=== PATIENT | female | born 1975 | race American Indian/Alaskan Native ===

== ENCOUNTER 2017-10-07 10:50 | Outpatient (CLI) | payer BC ==
--- NOTE | 2017-10-07 14:10 | Mammography Report ---
BILATERAL MAMMOGRAM: FINDINGS: Baseline mammogram. The breast tissue is extremely dense (>75% glandular). This may lower the sensitivity of mammography. No mass, distortion, suspicious calcification, or skin change is seen. CAD was utilized. IMPRESSION: Negative mammogram. There is no mammographic evidence of malignancy. RECOMMENDATION: Follow-up per ACS guidelines. BI-RADS CATEGORY: 1 = Negative ACR BI-RADS MAMMOGRAPHIC CODES: 0 = Needs additional imaging evaluation; 1 = Negative; 2 = Benign; 3 = Probably benign; 4 = Suspicious; 5 = Malignant; 6 = Known biopsy-proven malignancy COMMENT: 1. Dense breast tissue, i.e., adenosis, fibrocystic changes, etc., may obscure an underlying neoplasm. 2. Approximately 10% of cancers are not detected with mammography. 3. A negative mammography report should not delay biopsy if a clinically suspicious mass is present. COMMENT: Patient follow-up letters are generated in [employer].
--- NOTE | 2017-10-07 14:56 | Ultrasound Report ---
Pelvic ultrasound: Fibroids. Transabdominal and endovaginal imaging demonstrates an anteverted uterus measuring 8.1 x 9.9 x 13.4 cm. The uterus is diffusely inhomogeneous with multiple areas of circumscribed hypodensities. There are proximally for identified ranging in size from 3.1-6.5 cm. The largest is exophytic located in the high fundus. Another is in the lower uterine segment measuring 3.9 centimeters. The endometrium measures 18.2 mm. It is not optimally visualized. The ovaries are not identified by either approach. No free fluid noted. Impressions: 1. Enlarged uterus with multiple fibroids. 2. Poorly visualized thickened endometrium. 3. Nonvisualized ovaries.
== END 2017-10-07 10:51 | disposition home or self-care (01) ==
LOC: MAMMO 10:50 → US 10:50 → MAMMO 10:51
PROVIDERS: ATTEND Obstetrics & Gynecology
DX: Z12.31 Encounter for screening mammogram for malignant neoplasm of breast (principal); D25.9 Leiomyoma of uterus, unspecified
CPT/HCPCS: 76830; 76856; 77067

== ENCOUNTER 2017-12-20 11:34 | Outpatient (CLI) | payer BC ==
--- NOTE | 2017-12-20 14:22 | XRay Report ---
ROUTINE CHEST, TWO VIEWS: HISTORY: Shortness of breath. The trachea, heart, mediastinal contour, lung rivas and bony thorax are unremarkable. IMPRESSION: Unremarkable chest x-ray.
[2017-12-20] MEDS ORDERED: PROVENTIL IH ONE (14:23)
== END 2017-12-20 11:35 | disposition home or self-care (01) ==
LOC: ECHO 11:34
PROVIDERS: ATTEND Internal Medicine
DX: J45.901 Unspecified asthma with (acute) exacerbation (principal); I27.20 Pulmonary hypertension, unspecified
CPT/HCPCS: 71046; 93306; 94060; 94640; 94726; 94727; 94729

== ENCOUNTER 2019-03-23 09:46 | Outpatient (CLI) | payer BC ==
--- NOTE | 2019-03-23 15:04 | Ultrasound Report ---
Pelvic ultrasound INDICATION: History of uterine leiomyoma Transabdominal and endovaginal studies were performed. Uterus measures 14.3 x 8.8 x 10.7 cm. Multiple uterine leiomyomata are seen throughout the uterine fu ndus and body. The largest protrudes from the fundal area measuring 8.2 cm in maximal diameter. Endom etrial stripe is difficult to see well due to deformity from the leiomyomata though was measured by t technologist at 10 mm. Right ovary not be visualized. Left ovary measures 3.9 cm in length by my measurement and shows no ab normalities. No adnexal masses are seen. Only a trace of free fluid is seen. IMPRESSION: Multiple uterine leiomyomata Signer Name: South Ray MD Signed: 03/23/2019 3:00 PM Workstation Name: [id number]
--- NOTE | 2019-03-23 15:32 | Ultrasound Report ---
See separate pelvic ultrasound report Signer Name: South Ray MD Signed: 03/23/2019 3:27 PM Workstation Name: [id number]
== END 2019-03-23 09:47 | disposition home or self-care (01) ==
LOC: US 09:46
PROVIDERS: ATTEND Orthopaedic Surgery
DX: D25.9 Leiomyoma of uterus, unspecified (principal)
CPT/HCPCS: 76830; 76856

== ENCOUNTER 2019-05-15 10:46 | Outpatient (CLI) | payer BC ==
--- NOTE | 2019-05-15 14:26 | Magnetic Resonance Report ---
MRI PELVIS WITH AND WITHOUT CONTRAST HISTORY: D25.2) Subserosal leiomyoma of uterus. TECHNIQUE: Multisequence, multiplanar MRI and after IV contrast. 15 mL of MultiHance was given intrav enously. COMPARISON: Ultrasound pelvis dated 03/23/2019 FINDINGS: The uterus is markedly enlarged and lobular. Numerous submucosal, intramural, subserosal a nd exophytic fibroids are identified. Fibroids measure between 1 cm and 8 cm. The largest fibroid is an exophytic fibroid from the posterior wall measuring 8.2 cm in greatest dimension. There is no obvi ous calcification or cavitation of the fibroids. All fibroids enhance following the administration of IV contrast. The adnexa are unremarkable. Visualized bowel loops in the pelvis are within normal limits. The vascular structures are patent. Th e bony structures are unremarkable. No pelvic adenopathy. There is trace pelvic ascites. IMPRESSION: Severe uterine fibroid disease as described. Signer Name: Jonathan Bethea Jr, MD Signed: 05/15/2019 2:22 PM Workstation Name: [id number]
== END 2019-05-15 10:47 | disposition home or self-care (01) ==
LOC: MRI 10:46
PROVIDERS: ATTEND Radiology Diagnostic Radiology
DX: D25.1 Intramural leiomyoma of uterus (principal)
CPT/HCPCS: 72197; A9577

== ENCOUNTER 2019-07-04 22:57 | Inpatient (IN) | payer BC ==
[2019-07-04] MEDS ORDERED: KETOROLAC 30 MG/1 ML INJ IV ONE (23:15)
[2019-07-04] MEDS ORDERED: ONDANSETRON 4 MG/2 ML INJ IV ONE (23:15)
[2019-07-04] MEDS ORDERED: FAMOTIDINE 20 MG/2 ML INJ IV ONE (23:15)
[2019-07-04] MEDS ORDERED: SODIUM CHLORIDE 0.9% 1000 ML 1,000 ML IV ONE (23:15)
[2019-07-04] MEDS ORDERED: MORPHINE 4 MG/1 ML INJ IV ONE (23:15)
[2019-07-04 23:41] LABS: Basophils % (Auto) 0.3 % (0.0-1.8); Eosinophils # (Auto) 0.2 K/mm3 (0.0-0.4); Hematocrit 41.8 % (30.3-42.9); Hemoglobin 13.7 gm/dl (10.1-14.3); Lymphocytes # (Auto) 1.7 K/mm3 (1.2-5.4); Lymphocytes % (Auto) 14.3 % (13.4-35.0); Mean Corpuscular HGB Conc 33 % (30-34); Mean Corpuscular Volume 92 fl (79-97); Monocytes # (Auto) 0.6 K/mm3 (0.0-0.8); Platelet Count 286 K/mm3 (140-440); Red Blood Count 4.53 M/mm3 (3.65-5.03); Red Cell Distribution Width 15.4 % (13.2-15.2)
[2019-07-04 23:51] LABS: INR 1.03 (0.87-1.13)
[2019-07-04 23:52] LABS: Partial Thromboplastin Time 25.1 Sec. (24.2-36.6)
[2019-07-04 23:59] LABS: Alanine Aminotransferase 10 units/L (7-56); Albumin 4.1 g/dL (3.9-5); BUN/Creatinine Ratio 11; Blood Urea Nitrogen 8 mg/dL (7-17); Calcium 9.4 mg/dL (8.4-10.2); Hemolysis Index 11
[2019-07-05] MEDS ORDERED: SODIUM CHLORIDE 0.9% 1000 ML 1,000 ML IV ONE (00:34)
[2019-07-05 00:57] LABS: Bacteria,Urine 1+ /HPF (Negative); Bilirubin,Urine NEG (Negative); Blood,Urine NEG (Negative); Color,Urine Amber (Yellow); Mucus,Urine 1+ /HPF; Urobilinogen,Urine < 2.0 mg/dL (<2.0)
--- NOTE | 2019-07-05 01:31 | Cat Scan Report ---
CT ABDOMEN AND PELVIS WITH CONTRAST INDICATION / CLINICAL INFORMATION: abd distension with pain. TECHNIQUE: Axial CT images were obtained through the abdomen and pelvis after 100 mL Omnipaque [address] scans at this location are performed using CT dose reduction for ALARA by means of automated exposure control. COMPARISON: MRI pelvis dated 05/15/19 FINDINGS: LOWER CHEST: No significant abnormality. LIVER: No significant abnormality. GALLBLADDER: No significant abnormality. BILE DUCTS: No significant abnormality. PANCREAS: No significant abnormality. SPLEEN: No significant abnormality. ADRENALS: No significant abnormality. RIGHT KIDNEY and URETER: No significant abnormality. LEFT KIDNEY and URETER: No significant abnormality. STOMACH and SMALL BOWEL: Stomach is mildly dilated and fluid-filled. Small bowel is diffusely and mod erately dilated with numerous air-fluid levels. There is some feculent material in the distal small b owel. There is gradual transition from dilated to nondilated in the distal small bowel. No discrete t ransition point is noted. COLON: Normal amount of gas and fecal material throughout the colon. APPENDIX: No significant abnormality. PERITONEUM: No free fluid. No free air. No fluid collection. LYMPH NODES: No significant adenopathy. AORTA and ARTERIES: No significant abnormality. IVC and VEINS: No significant abnormality. URINARY BLADDER: No significant abnormality. REPRODUCTIVE ORGANS: As seen on recent MRI, the bladder is markedly enlarged containing numerous fibr oids. There is increased density and gas within several of these large fibroids which could represent degeneration versus necrosis. ADDITIONAL FINDINGS: None. SKELETAL SYSTEM: No significant abnormality. IMPRESSION: 1. Moderately dilated, fluid-filled small bowel with gradual transition in the distal small bowel. Fi ndings could represent ileus versus low-grade obstruction. 2. Enlarged uterus containing multiple fibroids with degeneration versus necrosis. Signer Name: Boubacar Jamil MD Signed: 07/05/2019 1:26 AM Workstation Name: [email or web address]
--- NOTE | 2019-07-05 01:56 | Emergency Department Report ---
ED Abdominal Pain HPI - General Chief Complaint: Abdominal Pain Stated Complaint: EMESIS/ABD PAIN Time Seen by Provider: 07/04/19 23:15 Source: patient Mode of arrival: Ambulatory Limitations: No Limitations - History of Present Illness Initial Comments: Patient is a 43-year-old female with past history of fibroids who had uterine artery embolization done approximately 5 days ago was complaining of diffuse abdominal pain. Patient states for the past 3 days she has had nausea and vomiting. Patient has not had a bowel movement since the procedure. Patient's been taking Percocet for pain but the pain is worsened over the last day. Patient states the pain is 10 out of 10 in severity. Patient has not had a bowel movement in approximately 5 days. Patient is pain in the abdomen is a 10 out of 10 in severity is diffuse. Patient denies urinary frequency or dysuria. Patient had to be straight cathed by her the day after the surgery but has had no apparent problems passing urine since Severity scale (0 -10): 0 - Related Data Allergies Allergy/AdvReac Type Severity Reaction Status Date / Time No Known Allergies Allergy Unverified 10/07/17 11:09 ED Review of Systems ROS: Stated complaint: EMESIS/ABD PAIN Other details as noted in HPI Comment: All other systems reviewed and negative ED Past Medical Hx - Past Medical History Previous Medical History?: No - Surgical History Past Surgical History?: No - Social History Smoking Status: Never Smoker Substance Use Type: Alcohol ED Physical Exam - General Limitations: No Limitations General appearance: alert, in distress - Head Head exam: Present: atraumatic, normocephalic - Eye Eye exam: Present: normal appearance, PERRL, EOMI - ENT ENT exam: Present: mucous membranes dry - Neck Neck exam: Present: normal inspection - Respiratory Respiratory exam: Present: normal lung sounds bilaterally. Absent: respiratory distress, wheezes, rales, rhonchi - Cardiovascular Cardiovascular Exam: Present: regular rate, normal rhythm, normal heart sounds. Absent: systolic murmur, diastolic murmur, rubs, gallop - GI/Abdominal GI/Abdominal exam: Present: soft, distended, tenderness (diffuse), normal bowel sounds, hyperactive bowel sounds. Absent: guarding, rebound - Extremities Exam Extremities exam: Present: normal inspection - Back Exam Back exam: Present: normal inspection - Neurological Exam Neurological exam: Present: alert, oriented X3 - Psychiatric Psychiatric exam: Present: normal affect, normal mood - Skin Skin exam: Present: warm, dry, intact, normal color. Absent: rash ED Course Vital Signs 07/04/19 07/04/19 07/04/19 23:16 23:36 23:38 Temperature 97.8 F 97.8 F Pulse Rate 78 Respiratory 18 18 Rate Blood Pressure 131/89 [Right] O2 Sat by Pulse 98 98 Oximetry ED Medical Decision Making - Lab Data Result diagrams: 07/04/19 23:29 07/04/19 23:29 Lab Results 07/04/19 07/04/19 07/04/19 Range/Units 23:29 23:29 23:29 WBC 11.8 H (4.5-11.0) K/mm3 RBC 4.53 (3.65-5.03) M/mm3 Hgb 13.7 (10.1-14.3) gm/dl Hct 41.8 (30.3-42.9) % MCV 92 (79-97) fl MCH 30 (28-32) pg MCHC 33 (30-34) % RDW 15.4 H (13.2-15.2) % Plt Count 286 (140-440) K/mm3 Lymph % (Auto) 14.3 (13.4-35.0) % [place] % (Auto) 5.0 (0.0-7.3) % Eos % (Auto) 2.0 (0.0-4.3) % Baso % (Auto) 0.3 (0.0-1.8) % Lymph # 1.7 (1.2-5.4) K/mm3 [place] # 0.6 (0.0-0.8) K/mm3 Eos # 0.2 (0.0-0.4) K/mm3 Baso # 0.0 (0.0-0.1) K/mm3 Seg Neutrophils % 78.4 H (40.0-70.0) % Seg Neutrophils # 9.3 H (1.8-7.7) K/mm3 PT 13.4 (12.2-14.9) Sec. INR 1.03 (0.87-1.13) APTT 25.1 (24.2-36.6) Sec. Sodium 139 (137-145) mmol/L Potassium 3.9 (3.6-5.0) mmol/L Chloride 98.3 (98-107) mmol/L Carbon Dioxide 25 (22-30) mmol/L Anion Gap 20 mmol/L BUN 8 (7-17) mg/dL Creatinine 0.7 (0.7-1.2) mg/dL Estimated GFR > 60 ml/min BUN/Creatinine Ratio 11 % Glucose 120 H (65-100) mg/dL Calcium 9.4 (8.4-10.2) mg/dL Total Bilirubin 0.40 (0.1-1.2) mg/dL AST 18 (5-40) units/L ALT 10 (7-56) units/L Alkaline Phosphatase 76 (35-129) units/L Total Protein 8.9 H (6.3-8.2) g/dL Albumin 4.1 (3.9-5) g/dL Albumin/Globulin Ratio 0.9 % Lipase 33 (13-60) units/L HCG, Qual (Negative) Urine Color (Yellow) Urine Turbidity (Clear) Urine pH (5.0-7.0) Ur Specific [place] (1.003-1.030) Urine Protein (Negative) mg/dL Urine Glucose (UA) (Negative) mg/dL Urine Ketones (Negative) mg/dL Urine Blood (Negative) Urine Nitrite (Negative) Urine Bilirubin (Negative) Urine Urobilinogen (<2.0) mg/dL Ur Leukocyte Esterase (Negative) Urine WBC (Auto) (0.0-6.0) /HPF Urine RBC (Auto) (0.0-6.0) /HPF Urine Bacteria (Auto) (Negative) /HPF Urine Mucus /HPF 07/04/19 07/05/19 Range/Units 23:29 00:36 WBC (4.5-11.0) K/mm3 RBC (3.65-5.03) M/mm3 Hgb (10.1-14.3) gm/dl Hct (30.3-42.9) % MCV (79-97) fl MCH (28-32) pg MCHC (30-34) % RDW (13.2-15.2) % Plt Count (140-440) K/mm3 Lymph % (Auto) (13.4-35.0) % [place] % (Auto) (0.0-7.3) % Eos % (Auto) (0.0-4.3) % Baso % (Auto) (0.0-1.8) % Lymph # (1.2-5.4) K/mm3 [place] # (0.0-0.8) K/mm3 Eos # (0.0-0.4) K/mm3 Baso # (0.0-0.1) K/mm3 Seg Neutrophils % (40.0-70.0) % Seg Neutrophils # (1.8-7.7) K/mm3 PT (12.2-14.9) Sec. INR (0.87-1.13) APTT (24.2-36.6) Sec. Sodium (137-145) mmol/L Potassium (3.6-5.0) mmol/L Chloride (98-107) mmol/L Carbon Dioxide (22-30) mmol/L Anion Gap mmol/L BUN (7-17) mg/dL Creatinine (0.7-1.2) mg/dL Estimated GFR ml/min BUN/Creatinine Ratio % Glucose (65-100) mg/dL Calcium (8.4-10.2) mg/dL Total Bilirubin (0.1-1.2) mg/dL AST (5-40) units/L ALT (7-56) units/L Alkaline Phosphatase (35-129) units/L Total Protein (6.3-8.2) g/dL Albumin (3.9-5) g/dL Albumin/Globulin Ratio % Lipase (13-60) units/L HCG, Qual Negative (Negative) Urine Color [place] (Yellow) Urine Turbidity Clear (Clear) Urine pH 5.0 (5.0-7.0) Ur Specific [place] 1.034 H (1.003-1.030) Urine Protein 30 mg/dl (Negative) mg/dL Urine Glucose (UA) Neg (Negative) mg/dL Urine Ketones 20 (Negative) mg/dL Urine Blood Neg (Negative) Urine Nitrite Neg (Negative) Urine Bilirubin Neg (Negative) Urine Urobilinogen < 2.0 (<2.0) mg/dL Ur Leukocyte Esterase Neg (Negative) Urine WBC (Auto) 3.0 (0.0-6.0) /HPF Urine RBC (Auto) 21.0 (0.0-6.0) /HPF Urine Bacteria (Auto) 1+ (Negative) /HPF Urine Mucus 1+ /HPF - Radiology Data CT ABDOMEN AND PELVIS WITH CONTRAST INDICATION / CLINICAL INFORMATION: abd distension with pain. TECHNIQUE: Axial CT images were obtained through the abdomen and pelvis after 100 mL Omnipaque [address] scans at this location are performed using CT dose reduction for ALARA by means of automated exposure control. COMPARISON: MRI pelvis dated 05/15/19 FINDINGS: LOWER CHEST: No significant abnormality. LIVER: No significant abnormality. GALLBLADDER: No significant abnormality. BILE DUCTS: No significant abnormality. PANCREAS: No significant abnormality. SPLEEN: No significant abnormality. ADRENALS: No significant abnormality. RIGHT KIDNEY and URETER: No significant abnormality. LEFT KIDNEY and URETER: No significant abnormality. STOMACH and SMALL BOWEL: Stomach is mildly dilated and fluid-filled. Small bowel is diffusely and moderately dilated with numerous air-fluid levels. There is some feculent material in the distal small bowel. There is gradual transition from dilated to nondilated in the distal small bowel. No discrete transition point is noted. COLON: Normal amount of gas and fecal material throughout the colon. APPENDIX: No significant abnormality. PERITONEUM: No free fluid. No free air. No fluid collection. LYMPH NODES: No significant adenopathy. AORTA and ARTERIES: No significant abnormality. IVC and VEINS: No significant abnormality. URINARY BLADDER: No significant abnormality. REPRODUCTIVE ORGANS: As seen on recent MRI, the bladder is markedly enlarged containing numerous fibroids. There is increased density and gas within several of these large fibroids which could represent degeneration versus necrosis. ADDITIONAL FINDINGS: None. SKELETAL SYSTEM: No significant abnormality. IMPRESSION: 1. Moderately dilated, fluid-fi lled small bowel with gradual transition in the distal small bowel. Findings could represent ileus versus low-grade obstruction. 2. Enlarged uterus containing multiple fibroids with degeneration versus necrosis. Signer Name: Boubacar Jamil MD Signed: 07/05/2019 1:26 AM Workstation Name: [id number] Transcribed By: DT Dictated By: Kyle Jamil MD Electronically Authenticated By: Kyle Jamil MD Signed Date/Time: 07/05/19 0126 - Medical Decision Making Patient is a 43-year-old female who is 5 days status post uterine artery embolization. Vascular surgeon told patient and her that she would be a some pain however the pain is worsened from with the patient was expecting she's been brought to the emergency department. Patient also has a distended abdomen nausea vomiting for the past [address] shows that the patient has diffuse dilation of the small bowel which does taper off close to the colon. This suggestive of ileus versus low-grade obstruction. NG tube will be placed. Patient was hydrated. Patient be admitted to the hospital Critical care attestation.: If time is entered above; I have spent that time in minutes in the direct care of this critically ill patient, excluding procedure time. ED Disposition Clinical Impression: Small bowel obstruction Disposition: -09 OP ADMIT IP TO THIS HOSP Is pt being admited?: Yes Does the pt Need Aspirin: No Condition: Stable Referrals: FREDERICK STEPHENS MD [Primary Care Provider] - 3-5 Days Time of Disposition: 02:06
[2019-07-05] MEDS ORDERED: LIDOCAINE VISCOUS 2% 15 ML ORAL LIQD PO ONE (02:25)
[2019-07-05] MEDS ORDERED: ACETAMINOPHEN 325 MG TAB PO PRN (02:57)
[2019-07-05] MEDS ORDERED: ONDANSETRON 4 MG/2 ML INJ IV PRN (02:57)
[2019-07-05] MEDS ORDERED: METOCLOPRAMIDE 10 MG/2 ML INJ IV PRN (02:57)
--- NOTE | 2019-07-05 03:07 | History and Physical Report ---
<HEATHER QUEVEDO - Last Filed: 07/05/19 03:20> History of Present Illness Date of examination: 07/05/19 Date of admission: 07/05/2019 Chief complaint: n/v, and abdominal pain History of present illness: 43-year-old -Finnish female with history of uterine fibroid disease who presents to [facility] ED with complaints of nausea, emesis and abdominal pain for the past 5 days. Patient states that she underwent uterine artery embolization on 06/29/19. She has been experiencing severe emesis, abdominal pain and worsening distention for the past 5 days. She was advised that post procedurally, she may experience mild abdominal pain/discomfort for day or two. However, her pain has not resolved and has progressively worsened. She describes her pain as sharp, and constant. Post procedure day 1 patient experienced urinary retention for 1 day which required a catheterization performed by her . She's now able to void independently. Additionally pt c/o of constipation for the past 5 days. Past History Past Medical History: other (uterine fibroids disease,) Past Surgical History: Other (status post uterine artery embolization (06/29)) Social history: Family history: no significant family history Medications and Allergies Allergies Allergy/AdvReac Type Severity Reaction Status Date / Time No Known Allergies Allergy Unverified 10/07/17 11:09 Review of Systems All systems: negative Gastrointestinal: abdominal pain, nausea, vomiting, constipation, other (abdominal distention) Exam - Physical Exam Narrative exam: General appearance: Present: No acute distress, alert and oriented 3, pleasant, well, adult female - EENT Eyes: Present: PERRL, EOM intact ENT: hearing intact, normal dentition - Neck Neck: Present: supple, normal ROM - Respiratory Respiratory effort: Non-labored Respiratory: bilateral: CTA - Cardiovascular Heart rate:78 (bpm) Rhythm:SR Heart Sounds: Present: S1, S2. - Extremities Extremities: no ischemia, pulses intact - Peripheral Assessment Peripheral Pulses: within normal limits - Abdominal General gastrointestinal: Distended, diffuse tenderness, hyperactive bowel sounds, - Integumentary Integumentary: Present: warm, dry - Musculoskeletal Musculoskeletal: generalized weakness, able to move all extremities -Neurological Neurological: CN II-XII grossly intact - Psychiatric Psychiatric: Pleasant, cooperative - Constitutional Vitals: Temp Pulse Resp BP Pulse Ox 97.8 F 78 18 131/89 98 07/04/19 23:38 07/04/19 23:38 07/04/19 23:38 07/04/19 23:38 07/04/19 23:38 Results - Labs CBC & Chem 7: 07/04/19 23:29 07/04/19 23:29 Labs: Laboratory Last Values WBC 11.8 K/mm3 (4.5-11.0) H 07/04/19 23: RBC 4.53 M/mm3 (3.65-5.03) 07/04/19 23: Hgb 13.7 gm/dl (10.1-14.3) 07/04/19: Hct 41.8 % (30.3-42.9) 07/04/19: MCV 92 fl (79-97) 07/04/19 23: MCH 30 pg (28-32) 07/04/19: MCHC 33 % (30-34) 07/04/19: RDW 15.4 % (13.2-15.2) H 07/04/19 23: Plt Count 286 K/mm3 (140-440) 07/04/19 23:29 Lymph % (Auto) 14.3 % (13.4-35.0) 07/04/19: Gilchrist % (Auto) 5.0 % (0.0-7.3) 07/04/19: Eos % (Auto) 2.0 % (0.0-4.3) 07/04/19: Baso % (Auto) 0.3 % (0.0-1.8) 07/04/19 23: Lymph # 1.7 K/mm3 (1.2-5.4) 07/04/19: Gilchrist # 0.6 K/mm3 (0.0-0.8) 07/04/19: Eos # 0.2 K/mm3 (0.0-0.4) 07/04/19 23: Baso # 0.0 K/mm3 (0.0-0.1) 07/04/19 23: Seg Neutrophils % 78.4 % (40.0-70.0) H 07/04/19:29 Seg Neutrophils # 9.3 K/mm3 (1.8-7.7) H 07/04/19 23:29 PT 13.4 Sec. (12.2-14.9) 07/04/19 23:29 INR 1.03 (0.87-1.13) 07/04/19 23:29 APTT 25.1 Sec. (24.2-36.6) 07/04/19 23:29 Sodium 139 mmol/L (137-145) 07/04/19 23:29 Potassium 3.9 mmol/L (3.6-5.0) 07/04/19 23: Chloride 98.3 mmol/L (98-107) 07/04/19 23:29 Carbon Dioxide 25 mmol/L (22-30) 07/04/19 23:29 Anion Gap 20 mmol/L 07/04/19 23:29 BUN 8 mg/dL (7-17) 07/04/19 23: Creatinine 0.7 mg/dL (0.7-1.2) 07/04/19 23:29 Estimated GFR > 60 ml/min 07/04/19 23:29 BUN/Creatinine Ratio 11 % 07/04/19 23: Glucose 120 mg/dL (65-100) H 07/04/19 23: Calcium 9.4 mg/dL (8.4-10.2) 07/04/19 23:29 Total Bilirubin 0.40 mg/dL (0.1-1.2) 07/04/19 23:29 AST 18 units/L (5-40) 07/04/19: ALT 10 units/L (7-56) 07/04/19 23: Alkaline Phosphatase 76 units/L (35-129) 07/04/19 23:29 Total Protein 8.9 g/dL (6.3-8.2) H 07/04/19 23:29 Albumin 4.1 g/dL (3.9-5) 07/04/19 23: Albumin/Globulin Ratio 0.9 % 07/04/19 23:29 Lipase 33 units/L (13-60) 07/04/19 23:29 HCG, Qual Negative (Negative) 07/04/19 23:29 Urine Color Alesha (Yellow) 07/05/19 00:36 Urine Turbidity Clear (Clear) 07/05/19 00:36 Urine pH 5.0 (5.0-7.0) 07/05/19 00:36 Ur Specific [place] 1.034 (1.003-1.030) H 07/05/19 00:36 Urine Protein 30 mg/dl mg/dL (Negative) 07/05/19 00:36 Urine Glucose (UA) Neg mg/dL (Negative) 07/05/19 00:36 Urine Ketones 20 mg/dL (Negative) 07/05/19 00:36 Urine Blood Neg (Negative) 07/05/19 00:36 Urine Nitrite Neg (Negative) 07/05/19 00:36 Urine Bilirubin Neg (Negative) 07/05/19 00:36 Urine Urobilinogen < 2.0 mg/dL (<2.0) 07/05/19 00:36 Ur Leukocyte Esterase Neg (Negative) 07/05/19 00:36 Urine WBC (Auto) 3.0 /HPF (0.0-6.0) 07/05/19 00:36 Urine RBC (Auto) 21.0 /HPF (0.0-6.0) 07/05/19 00:36 Urine Bacteria (Auto) 1+ /HPF (Negative) 07/05/19 00:36 Urine Mucus 1+ /HPF 07/05/19 00:36 - Imaging and Cardiology Imaging and Cardiology: CT abdomen and pelvis: FINDINGS: LOWER CHEST: No significant abnormality. LIVER: No significant abnormality. GALLBLADDER: No significant abnormality. BILE DUCTS: No significant abnormality. PANCREAS: No significant abnormality. SPLEEN: No significant abnormality. ADRENALS: No significant abnormality. RIGHT KIDNEY and URETER: No significant abnormality. LEFT KIDNEY and URETER: No significant abnormality. STOMACH and SMALL BOWEL: Stomach is mildly dilated and fluid-filled. Small bowel is diffusely and moderately dilated with numerous air-fluid levels. There is some feculent material in the distal small bowel. There is gradual transition from dilated to nondilated in the distal small bowel. No discrete transition point is noted. COLON: Normal amount of gas and fecal material throughout the colon. APPENDIX: No significant abnormality. PERITONEUM: No free fluid. No free air. No fluid collection. LYMPH NODES: No significant adenopathy. AORTA and ARTERIES: No significant abnormality. IVC and VEINS: No significant abnormality. URINARY BLADDER: No significant abnormality. REPRODUCTIVE ORGANS: As seen on recent MRI, the bladder is markedly enlarged containing numerous fibroids. There is increased density and gas within several of these large fibroids which could represent degeneration versus necrosis. ADDITIONAL FINDINGS: None. SKELETAL SYSTEM: No significant abnormality. IMPRESSION: 1. Moderately dilated, fluid-filled small bowel with gradual transition in the distal small bowel. Findings could represent ileus versus low-grade obstruction. 2. Enlarged uterus containing multiple fibroids with degeneration versus necrosis. Assessment and Plan Assessment and plan: 43-year-old -Finnish female with history of uterine fibroid disease who presents to [facility] ED with complaints of nausea, emesis and abdominal pain for the past 5 days. Ileus versus Low-grade Small Bowel Obstruction -Seen on today's CT Abd/pelvis -NGT to LIS -NPO -IVF -Continue support care -Dr. 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 DVT PPX -On Lovenox Advance Directives: No VTE prophylaxis?: Chemical Plan of care discussed with patient/family: Yes <VIKRAM RUIZ - Last Filed: 07/05/19 05:38> History of Present Illness Date of admission: 07/05/19 02:57 Medications and Allergies Active Meds: Active Medications Enoxaparin Sodium (Enoxaparin) 40 mg SUB-Q QDAY [facility] Sodium Chloride (Nacl 0.45% 1000 Ml) 1,000 mls @ 100 mls/hr IV DIRECT [facility] Last Admin: 07/05/19 03:50 Dose: 100 mls/hr Documented by: Metoclopramide HCl (Reglan) 10 mg IV Q6H PRN PRN Reason: Nausea And Vomiting Morphine Sulfate (Morphine) 2 mg IV Q4H PRN PRN Reason: Pain, Moderate (4-6) Ondansetron HCl (Zofran) 4 mg IV Q6H PRN PRN Reason: Nausea And Vomiting Sodium Chloride (Sodium Chloride Flush Syringe 10 Ml) 10 ml IV BID GABI Sodium Chloride (Sodium Chloride Flush Syringe 10 Ml) 10 ml IV PRN PRN PRN Reason: LINE FLUSH Exam - Constitutional Vitals: Temp Pulse Resp BP Pulse Ox 98.0 F 88 18 131/85 100 07/05/19 05:21 07/05/19 05:21 07/05/19 05:21 07/05/19 05:21 07/05/19 05:21 Results - Labs CBC & Chem 7: 07/04/19 23:29 07/04/19 23:29 Labs: Laboratory Last Values WBC 11.8 K/mm3 (4.5-11.0) H 07/04/19 23:29 RBC 4.53 M/mm3 (3.65-5.03) 07/04/19 23:29 Hgb 13.7 gm/dl (10.1-14.3) 07/04/19 23: Hct 41.8 % (30.3-42.9) 07/04/19 23: MCV 92 fl (79-97) 07/04/19 23: MCH 30 pg (28-32) 07/04/19 23: MCHC 33 % (30-34) 07/04/19 23: RDW 15.4 % (13.2-15.2) H 07/04/19 23:29 Plt Count 286 K/mm3 (140-440) 07/04/19 23:29 Lymph % (Auto) 14.3 % (13.4-35.0) 07/04/19 23: Gilchrist % (Auto) 5.0 % (0.0-7.3) 07/04/19 23: Eos % (Auto) 2.0 % (0.0-4.3) 07/04/19 23: Baso % (Auto) 0.3 % (0.0-1.8) 07/04/19 23: Lymph # 1.7 K/mm3 (1.2-5.4) 07/04/19 23: Gilchrist # 0.6 K/mm3 (0.0-0.8) 07/04/19 23: Eos # 0.2 K/mm3 (0.0-0.4) 07/04/19 23: Baso # 0.0 K/mm3 (0.0-0.1) 07/04/19 23: Seg Neutrophils % 78.4 % (40.0-70.0) H 07/04/19 23:29 Seg Neutrophils # 9.3 K/mm3 (1.8-7.7) H 07/04/19 23:29 PT 13.4 Sec. (12.2-14.9) 07/04/19 23:29 INR 1.03 (0.87-1.13) 07/04/19 23:29 APTT 25.1 Sec. (24.2-36.6) 07/04/19 23:29 Sodium 139 mmol/L (137-145) 07/04/19 23:29 Potassium 3.9 mmol/L (3.6-5.0) 07/04/19 23:29 Chloride 98.3 mmol/L (98-107) 07/04/19 23:29 Carbon Dioxide 25 mmol/L (22-30) 07/04/19 23:29 Anion Gap 20 mmol/L 07/04/19 23:29 BUN 8 mg/dL (7-17) 07/04/19 23:29 Creatinine 0.7 mg/dL (0.7-1.2) 07/04/19 23:29 Estimated GFR > 60 ml/min 07/04/19 23:29 BUN/Creatinine Ratio 11 % 07/04/19 23:29 Glucose 120 mg/dL (65-100) H 07/04/19 23:29 Calcium 9.4 mg/dL (8.4-10.2) 07/04/19 23:29 Total Bilirubin 0.40 mg/dL (0.1-1.2) 07/04/19 23:29 AST 18 units/L (5-40) 07/04/19 23:29 ALT 10 units/L (7-56) 07/04/19 23:29 Alkaline Phosphatase 76 units/L (35-129) 07/04/19 23:29 Total Protein 8.9 g/dL (6.3-8.2) H 07/04/19 23:29 Albumin 4.1 g/dL (3.9-5) 07/04/19 23:29 Albumin/Globulin Ratio 0.9 % 07/04/19 23:29 Lipase 33 units/L (13-60) 07/04/19 23:29 HCG, Qual Negative (Negative) 07/04/19 23:29 Urine Color Alesha (Yellow) 07/05/19 00:36 Urine Turbidity Clear (Clear) 07/05/19 00:36 Urine pH 5.0 (5.0-7.0) 07/05/19 00:36 Ur Specific [place] 1.034 (1.003-1.030) H 07/05/19 00:36 Urine Protein 30 mg/dl mg/dL (Negative) 07/05/19 00:36 Urine Glucose (UA) Neg mg/dL (Negative) 07/05/19 00:36 Urine Ketones 20 mg/dL (Negative) 07/05/19 00:36 Urine Blood Neg (Negative) 07/05/19 00:36 Urine Nitrite Neg (Negative) 07/05/19 00:36 Urine Bilirubin Neg (Negative) 07/05/19 00:36 Urine Urobilinogen < 2.0 mg/dL (<2.0) 07/05/19 00:36 Ur Leukocyte Esterase Neg (Negative) 07/05/19 00:36 Urine WBC (Auto) 3.0 /HPF (0.0-6.0) 07/05/19 00:36 Urine RBC (Auto) 21.0 /HPF (0.0-6.0) 07/05/19 00:36 Urine Bacteria (Auto) 1+ /HPF (Negative) 07/05/19 00:36 Urine Mucus 1+ /HPF 07/05/19 00:36 Assessment and Plan Assessment and plan: 43-year-old woman status post uterine fibroid embolization 5 days ago, comes emergency room with complaints of nausea vomiting abdominal pain, no bowel movement. She was found to have a low-grade obstruction, NG tube in place,IV fluid, surgery was consulted to see the patient
[2019-07-05] MEDS: SODIUM CHLORIDE 0.45% 1000 ML 1,000 ML IV SCH ×2 (03:50→16:57)
--- NOTE | 2019-07-05 04:23 | XRay Report ---
ABDOMEN 1 VIEW 4:00 AM INDICATION / CLINICAL INFORMATION: ng tube placement verification. COMPARISON: CT dated 07/05/19 FINDINGS: TUBES / LINES: Esophagogastric tube is doubled back on itself at the gastroesophageal junction with t he tip in the mid esophagus directed to the head. BOWEL GAS PATTERN: Moderately dilated loops of small bowel similar to CT. FREE AIR / EXTRALUMINAL GAS: None seen. ADDITIONAL FINDINGS: No significant additional findings. IMPRESSION: 1. Esophagogastric tube doubled back on itself in the esophagus. The tube should be replaced/repositi oned. Signer Name: Boubacar Jamil MD Signed: 07/05/2019 4:18 AM Workstation Name: [email or web address]
--- NOTE | 2019-07-05 04:57 | XRay Report ---
ABDOMEN 1 VIEW 4:36 AM INDICATION / CLINICAL INFORMATION: ng tube placement verification. COMPARISON: 4:00 AM FINDINGS: TUBES / LINES: Esophagogastric tube has been repositioned with the tip in the mid stomach in expected location. BOWEL GAS PATTERN: Dilated loops of small bowel with air-fluid levels are unchanged. FREE AIR / EXTRALUMINAL GAS: None seen. ADDITIONAL FINDINGS: No significant additional findings. IMPRESSION: 1. Esophagogastric tube in expected position. Signer Name: Boubacar Jamil MD Signed: 07/05/2019 4:52 AM Workstation Name: [email or web address]
[2019-07-05] MEDS ORDERED: SODIUM CHLORIDE 0.9% 1000 ML 500 ML IV ONE (09:55)
--- NOTE | 2019-07-05 10:11 | Consultation ---
History of Present Illness Consult date: 07/05/19 Chief complaint: small bowel obstruction / ileus - History of present illness History of present illness: 43 year old female 6 days s/p uterine artery embolization for fibroids. the procedure was uneventful, but she was was having significant pain and was medicating consistently with her prescribed post procedure medications. She had worsening abdominal pain with 3 day history of nausea and vomiting. No appetite, and reports no bowel movement or flatus in 6 days. She was brought in through the ED and a CT scan showed a early small bowel obstruction vs ileus. Reports a chronic history of constipation. Past History Past Medical History: other (uterine fibroids disease,) Past Surgical History: No surgical history, Other (status post uterine artery embolization (06/29/2019)) Social history: Family history: no significant family history Medications and Allergies Allergies Allergy/AdvReac Type Severity Reaction Status Date / Time No Known Allergies Allergy Unverified 10/07/17 11:09 Home Medications Medication Instructions Recorded Confirmed Last Taken Type No Known Home Medications [No 07/05/19 07/05/19 Unknown History Reported Home Medications] Active Meds: Active Medications Enoxaparin Sodium (Enoxaparin) 40 mg SUB-Q QDAY [facility] Sodium Chloride (Nacl 0.45% 1000 Ml) 1,000 mls @ 100 mls/hr IV DIRECT [facility] Last Admin: 07/05/19 03:50 Dose: 100 mls/hr Documented by: Sodium Chloride (Nacl 0.9% 1000 Ml) 500 mls @ 999 mls/hr IV BOLUS ONE Stop: 07/05/19 10:25 Ketorolac Tromethamine (Toradol) 30 mg IV Q6HR [facility] Stop: 07/10/19 11:59 Morphine Sulfate (Morphine) 2 mg IV Q4H PRN PRN Reason: Pain, Moderate (4-6) Ondansetron HCl (Zofran) 4 mg IV Q6H PRN PRN Reason: Nausea And Vomiting Phenol (Chloraseptic) 1 spray MM PRN PRN PRN Reason: Sore Throat Senna (Senokot) 17.6 mg PO Q12HR PRN PRN Reason: Laxative Effect Sodium Chloride (Sodium Chloride Flush Syringe 10 Ml) 10 ml IV BID GABI Sodium Chloride (Sodium Chloride Flush Syringe 10 Ml) 10 ml IV PRN PRN PRN Reason: LINE FLUSH Review of Systems - Respiratory no shortness of breath - Gastrointestinal abdominal pain, nausea, vomiting, constipation Exam Vital Signs Temp 97.8 F 07/04/19 23:16 - General physical appearance Positive: well developed, no distress, moderate pain - Respiratory Positive: normal expansion, normal respiratory effort - Abdomen Abdomen: Present: soft, distended, other (tender to palpation, no peritoneal signs, NGT in place with no fluid in the canister). Absent: guarding, rigid Results - Labs 07/04/19 23:29 07/04/19 23:29 Abnormal lab results 07/04/19 07/04/19 07/05/19 Range/Units 23:29 23:29 00:36 WBC 11.8 H (4.5-11.0) K/mm3 RDW 15.4 H (13.2-15.2) % Seg Neutrophils % 78.4 H (40.0-70.0) % Seg Neutrophils # 9.3 H (1.8-7.7) K/mm3 Glucose 120 H (65-100) mg/dL Total Protein 8.9 H (6.3-8.2) g/dL Ur Specific [place] 1.034 H (1.003-1.030) Diabetes panel 07/04/19 Range/Units 23:29 Sodium 139 (137-145) mmol/L Potassium 3.9 (3.6-5.0) mmol/L Chloride 98.3 (98-107) mmol/L Carbon Dioxide 25 (22-30) mmol/L BUN 8 (7-17) mg/dL Creatinine 0.7 (0.7-1.2) mg/dL Glucose 120 H (65-100) mg/dL Calcium 9.4 (8.4-10.2) mg/dL AST 18 (5-40) units/L ALT 10 (7-56) units/L Alkaline Phosphatase 76 (35-129) units/L Total Protein 8.9 H (6.3-8.2) g/dL Albumin 4.1 (3.9-5) g/dL Calcium panel 07/04/19 Range/Units 23:29 Calcium 9.4 (8.4-10.2) mg/dL Albumin 4.1 (3.9-5) g/dL Pituitary panel 07/04/19 Range/Units 23:29 Sodium 139 (137-145) mmol/L Potassium 3.9 (3.6-5.0) mmol/L Chloride 98.3 (98-107) mmol/L Carbon Dioxide 25 (22-30) mmol/L BUN 8 (7-17) mg/dL Creatinine 0.7 (0.7-1.2) mg/dL Glucose 120 H (65-100) mg/dL Calcium 9.4 (8.4-10.2) mg/dL Adrenal panel 07/04/19 Range/Units 23:29 Sodium 139 (137-145) mmol/L Potassium 3.9 (3.6-5.0) mmol/L Chloride 98.3 (98-107) mmol/L Carbon Dioxide 25 (22-30) mmol/L BUN 8 (7-17) mg/dL Creatinine 0.7 (0.7-1.2) mg/dL Glucose 120 H (65-100) mg/dL Calcium 9.4 (8.4-10.2) mg/dL Total Bilirubin 0.40 (0.1-1.2) mg/dL AST 18 (5-40) units/L ALT 10 (7-56) units/L Alkaline Phosphatase 76 (35-129) units/L Total Protein 8.9 H (6.3-8.2) g/dL Albumin 4.1 (3.9-5) g/dL - Imaging Abdominal x-ray: report reviewed, image reviewed CT scan - pelvis: report reviewed, image reviewed US - abdomen: report reviewed, image reviewed (CT scan and abdominal x-ray reviewed with Dr. Bethea. cannot rule out bowel obstruction but more likely ileus with constipation. no free air, minimal probable physiologic free fluid) Assessment and Plan 43 year old female 6 days s/p UFE, with ileus vs SBO. stable, afebrile. continue NGT decompression. will order scheduled toradol, and discuss minimizing opioid use. will start BID senekot as a gentle laxative to stimulate the colon, and minimize abdominal discomfort. will check magnesium, and phosphorus and correct if deficient. will bolus, and increase hourly rate of fluids to reverse dehydration, will continue to follow.
[2019-07-05] MEDS ORDERED: SODIUM CHLORIDE IRRI 1000 ML 1,000 ML IR ONE (10:27)
[2019-07-05] MEDS ORDERED: SENNOSIDES ORAL LIQD 8.8 MG/5 ML ORAL LIQD PO PRN (11:00)
[2019-07-05] MEDS: ENOXAPARIN 40 MG/0.4 ML INJ SUB-Q SCH (11:03)
[2019-07-05] MEDS: KETOROLAC 30 MG/1 ML INJ IV SCH ×3 (11:05→23:26)
[2019-07-05] MEDS: PHENOL 1.4% 177 ML BOTTLE MM PRN (11:21)
[2019-07-05] MEDS ORDERED: levoFLOXacin 500 MG TAB PO SCH (14:00)
--- NOTE | 2019-07-05 14:04 | Consultation ---
History of Present Illness - Reason for Consult Consult date: 07/05/19 Ileus s/p UFE - History of Present Illness 43-year-old -[place] female with history of uterine fibroid disease who presents to [facility] ED with complaints of nausea, emesis and abdominal pain for the past 5 days. Patient states that she underwent uterine artery embolization on 06/29/19. She has been experiencing severe emesis, abdominal pain and worsening distention for the past 5 days. She describes her pain as sharp, and constant. Post procedure day 1 patient experienced urinary retention for 1 day which required a catheterization performed by her . She's now able to void independently. Additionally pt c/o of constipation for the past 5 days. Past History Past Medical History: other (uterine fibroids disease,) Past Surgical History: No surgical history, Other (status post uterine artery embolization (06/29/2019)) Social history: Family history: no significant family history Medications and Allergies Allergies Allergy/AdvReac Type Severity Reaction Status Date / Time No Known Allergies Allergy Unverified 10/07/17 11:09 Home Medications Medication Instructions Recorded Confirmed Last Taken Type No Known Home Medications [No 07/05/19 07/05/19 Unknown History Reported Home Medications] Active Meds: Active Medications Enoxaparin Sodium (Enoxaparin) 40 mg SUB-Q QDAY [facility] Last Admin: 07/05/19 11:03 Dose: 40 mg Documented by: Sodium Chloride (Nacl 0.45% 1000 Ml) 1,000 mls @ 100 mls/hr IV DIRECT [facility] Last Admin: 07/05/19 03:50 Dose: 100 mls/hr Documented by: Ketorolac Tromethamine (Toradol) 30 mg IV Q6HR [facility] Stop: 07/10/19 11:59 Last Admin: 07/05/19 11:05 Dose: 30 mg Documented by: Levofloxacin (Levaquin) 500 mg PO Q24HR [facility] Stop: 07/11/19 10:01 Morphine Sulfate (Morphine) 2 mg IV Q4H PRN PRN Reason: Pain, Moderate (4-6) Ondansetron HCl (Zofran) 4 mg IV Q6H PRN PRN Reason: Nausea And Vomiting Phenol (Chloraseptic) 1 spray MM PRN PRN PRN Reason: Sore Throat Last Admin: 07/05/19 11:21 Dose: 1 spray Documented by: Senna (Senokot) 17.6 mg PO Q12HR PRN PRN Reason: Laxative Effect Sodium Chloride (Sodium Chloride Flush Syringe 10 Ml) 10 ml IV BID [facility] Last Admin: 07/05/19 11:19 Dose: 10 ml Documented by: Sodium Chloride (Sodium Chloride Flush Syringe 10 Ml) 10 ml IV PRN PRN PRN Reason: LINE FLUSH Review of Systems All systems: negative (see HPI) Exam - Constitutional Vitals: Temp Pulse Resp BP Pulse Ox 98.1 F 74 18 120/73 96 07/05/19 11:36 07/05/19 11:36 07/05/19 11:36 07/05/19 11:36 07/05/19 11:36 General appearance: Present: no acute distress - EENT Eyes: Present: EOM intact ENT: hearing intact - Extremities Extremities: normal temperature, normal color - Abdominal General gastrointestinal: Present: soft, tender (no peritoneal signs, mild diffuse tenderness) - Psychiatric Psychiatric: appropriate mood/affect, cooperative Results - Labs CBC & Chem 7: 07/04/19 23:29 07/04/19 23:29 Labs: Abnormal lab results 07/04/19 07/04/19 07/05/19 Range/Units 23:29 23:29 00:36 WBC 11.8 H (4.5-11.0) K/mm3 RDW 15.4 H (13.2-15.2) % Seg Neutrophils % 78.4 H (40.0-70.0) % Seg Neutrophils # 9.3 H (1.8-7.7) K/mm3 Glucose 120 H (65-100) mg/dL Total Protein 8.9 H (6.3-8.2) g/dL Ur Specific [place] 1.034 H (1.003-1.030) - Imaging and Cardiology CT scan - abdomen: report reviewed, image reviewed Assessment and Plan 43 year old female with symptomatic uterine fibroids status post uterine fibroid embolization. Typical symptoms of uterine fibroid embolization include severe abdominal pain for 7 days with the worst pain being in the first 48 hours. Low grade fever can occur and nausea/vomiting are common during this period. These are usually controlled with Zofran, naproxen, and percocet. Patients are placed on ciprofloxacin for 7 days to decrease risk of endometritis. Unfortunately, the patient's narcotics have resulted in urinary retention which required intermittent kolb placement which has now resolved. She has also developed an ileus from narcotic use. Although constipation after UFE is common, ileus is not. Suspect as abdominal pain from the procedure was improving, patient's ileus pain was worsening. Recommend non-narcotic medication, as suggested by general surgery. Agree with NGT placement, and stimulants to increase bowel movements. Hopefully will be discharged in 24-48 hrs. Discussed with patient that she will need a hysteroscopy by Dr. Higgins between 07/13-07/20. She will contact his office to make arrangements.
[2019-07-05] MEDS ORDERED: SODIUM CHLORIDE 0.9% IRR 1,000 ML BOTTLE IR PRN (14:39)
--- NOTE | 2019-07-05 16:29 | Event Note ---
Date: 07/05/19 Patient seen and examined medical records reviewed patient was admitted early this morning with small bowel obstruction Surgery has evaluated the patient, on nothing by mouth status with IV fluids and supportive care Small bowel obstruction/Ileus; s/p Uterine fibroids embolization Surgery and interventional radiologist Evaluation and recommendations noted and appreciated Agree with the current management Monitor closely and adjust management as needed
[2019-07-05] MEDS: MORPHINE 2 MG/1 ML INJ IV PRN (19:49)
[2019-07-06] MEDS: SODIUM CHLORIDE 0.45% 1000 ML 1,000 ML IV SCH ×2 (04:26→20:38)
[2019-07-06] MEDS: MORPHINE 2 MG/1 ML INJ IV PRN ×2 (04:28→22:14)
[2019-07-06] MEDS: PHENOL 1.4% 177 ML BOTTLE MM PRN (04:28)
[2019-07-06] MEDS: KETOROLAC 30 MG/1 ML INJ IV SCH ×3 (05:39→18:51)
[2019-07-06 06:39] LABS: Basophils % (Auto) 0.5 % (0.0-1.8); Eosinophils # (Auto) 0.6 K/mm3 (0.0-0.4); Hematocrit 33.5 % (30.3-42.9); Hemoglobin 11.2 gm/dl (10.1-14.3); Lymphocytes # (Auto) 1.6 K/mm3 (1.2-5.4); Lymphocytes % (Auto) 18.9 % (13.4-35.0); Mean Corpuscular HGB Conc 33 % (30-34); Mean Corpuscular Volume 92 fl (79-97); Monocytes # (Auto) 0.6 K/mm3 (0.0-0.8); Platelet Count 270 K/mm3 (140-440); Red Blood Count 3.65 M/mm3 (3.65-5.03)
[2019-07-06 07:05] LABS: BUN/Creatinine Ratio 14; Blood Urea Nitrogen 7 mg/dL (7-17); Calcium 8.1 mg/dL (8.4-10.2); Hemolysis Index 0
--- NOTE | 2019-07-06 11:30 | Progress Note ---
Assessment and Plan Patient with a history of constipation, ileus and urinary retention following fibroid embolization. It is elected the sequela of narcotic administration in a narcotic joe agent. The patient appears to be clinically improving. We'll ob tain a repeat abdominal ultrasound. Continue nasogastric tube to intermittent wall suction. Subjective Date of service: 07/06/19 Interval history: Patient appears to be doing somewhat better. Her complaints of abdominal pain have decreased, she is not requiring narcotics for abdominal pain. NG tube is still in place. She describes an episode last night she had a bowel movement. Still complaining of abdominal distention. Objective - Constitutional Vitals: Vital Signs - 12hr 07/06/19 07/06/19 07/06/19 00:00 00:01 01:52 Temperature 98.3 F Pulse Rate 77 79 Pulse Rate [ 86 From Monitor] Respiratory 17 Rate Blood Pressure 124/72 Blood Pressure [Right] O2 Sat by Pulse 96 96 Oximetry 07/06/19 07/06/19 07/06/19 04:34 04:35 04:45 Temperature 98.0 F 98.0 F Pulse Rate 78 78 78 Pulse Rate [ From Monitor] Respiratory 17 17 Rate Blood Pressure 117/74 Blood Pressure 117/74 [Right] O2 Sat by Pulse 99 98 98 Oximetry 07/06/19 07:55 Temperature 98.1 F Pulse Rate 78 Pulse Rate [ From Monitor] Respiratory 18 Rate Blood Pressure 124/76 Blood Pressure [Right] O2 Sat by Pulse 96 Oximetry General appearance: Present: no acute distress - EENT Eyes: EOM intact ENT: hearing intact - Neck Neck: supple, normal ROM - Respiratory Respiratory effort: normal - Breasts Breasts: deferred - Gastrointestinal General gastrointestinal: Present: soft Rectal Exam: deferred - Genitourinary Female genitourinary: deferred - Psychiatric Psychiatric: appropriate mood/affect, cooperative - Labs CBC & Chem 7: 07/06/19 05:48 07/06/19 05:48 Labs: Abnormal lab results 07/06/19 07/06/19 Range/Units 05:48 05:48 Eos % (Auto) 7.0 H (0.0-4.3) % Eos # 0.6 H (0.0-0.4) K/mm3 Carbon Dioxide 19 L (22-30) mmol/L Creatinine 0.5 L (0.7-1.2) mg/dL Calcium 8.1 L (8.4-10.2) mg/dL Medications & Allergies - Medications Allergies/Adverse Reactions: Allergies No Known Allergies Allergy (Unverified 10/07/17 11:09) Home Medications: Home Medications Medication Instructions Recorded Confirmed Last Taken Type No Known Home Medications [No 07/05/19 07/05/19 Unknown History Reported Home Medications] Active Medications: Generic Name Dose Route Start Last Admin Trade Name Freq PRN Reason Stop Dose Admin Enoxaparin Sodium 40 mg 07/05/19 10:00 07/05/19 11:03 Enoxaparin SUB-Q 40 mg QDAY GABI Administration Sodium Chloride 1,000 mls @ 100 mls/hr 07/05/19 03:00 07/06/19 04:26 Nacl 0.45% 1000 Ml IV 100 mls/hr DIRECT GABI Administration Levofloxacin/Dextrose 500 mg in 100 mls @ 100 mls/hr 07/05/19 16:00 07/05/19 16:49 Levaquin 500mg/100ml IV 07/11/19 15:59 100 mls/hr Q24HR GABI Administration Protocol Ketorolac Tromethamine 30 mg 07/05/19 12:00 07/06/19 05:39 Toradol IV 07/10/19 11:59 Not Given Q6HR GABI Morphine Sulfate 2 mg 07/05/19 02:57 07/06/19 04:28 Morphine IV 2 mg Q4H PRN Administration Pain, Moderate (4-6) Ondansetron HCl 4 mg 07/05/19 02:57 Zofran IV Q6H PRN Nausea And Vomiting Phenol 1 spray 07/05/19 09:00 07/06/19 04:28 Chloraseptic MM 1 spray PRN PRN Administration Sore Throat Senna 17.6 mg 07/06/19 13:00 Senokot PO Q12HR GABI Sodium Chloride 10 ml 07/05/19 10:00 07/05/19 22:24 Sodium Chloride Flush Syringe 10 Ml IV 10 ml BID GABI Administration Sodium Chloride 10 ml 07/05/19 02:57 Sodium Chloride Flush Syringe 10 Ml IV PRN PRN LINE FLUSH Sodium Chloride 1,000 ml 07/05/19 14:39 Nacl 0.9% IR PRN PRN LINE FLUSH
[2019-07-06] MEDS: ENOXAPARIN 40 MG/0.4 ML INJ SUB-Q SCH (12:06)
[2019-07-06] MEDS: SENNOSIDES ORAL LIQD 8.8 MG/5 ML ORAL LIQD PO SCH ×2 (12:31→22:03)
--- NOTE | 2019-07-06 12:42 | XRay Report ---
ABDOMEN 1 VIEW HISTORY: Ileus versus small bowel obstruction. COMPARISON: 07/05/2019 FINDINGS:: Lung bases are clear. A nasogastric tube tip is in the mid stomach. Persistent moderate d istention of multiple proximal and central small bowel loops. A large volume of stool throughout the colon and in the rectum. No pneumoperitoneum. No radiopaque urinary stone disease. IMPRESSION: No significant change. Persistent small bowel distention system with ileus versus obstruc tion. No signs of perforation. Signer Name: Kelby Joya MD Signed: 07/06/2019 12:38 PM Workstation Name: [id number]
--- NOTE | 2019-07-06 13:13 | Progress Note ---
Assessment and Plan 7 days s/p UFE with post op ileus more likely than SBO. afebrile, stable, progressing slowly. abdominal x-ray shows no significant improvement compared to yesterday will continue NGT decompression, and gentle laxative stimulation. will await return of bowel function. No electrolytes to replace at this time. minimize opioid use. Subjective Date of service: 07/06/19 Patient Reports: Positive: pain is less, no bowel movement, other (Pt says that her abdominal pain is slightly less. she passed a very small amount of gas. no stool. nausea has improved, not resolved) Objective Vital Signs - 12hr 07/06/19 07/06/19 07/06/19 01:52 04:34 04:35 Temperature 98.0 F Pulse Rate 78 78 Pulse Rate [ 86 From Monitor] Respiratory 17 Rate Blood Pressure 117/74 Blood Pressure [Right] O2 Sat by Pulse 99 98 Oximetry 07/06/19 07/06/19 07/06/19 04:45 07:55 12:31 Temperature 98.0 F 98.1 F 97.9 F Pulse Rate 78 78 79 Pulse Rate [ From Monitor] Respiratory 17 18 18 Rate Blood Pressure 124/76 130/78 Blood Pressure 117/74 [Right] O2 Sat by Pulse 98 96 97 Oximetry - General physical appearance well developed, well nourished, no distress - Respiratory normal expansion, normal respiratory effort - Abdomen soft, distended, not guarding, not rigid, other (ngt with aout 150cc bilious drainage since yesterday) - Labs 07/06/19 05:48 07/06/19 05:48 Diabetes panel 07/06/19 Range/Units 05:48 Sodium 138 (137-145) mmol/L Potassium 4.2 (3.6-5.0) mmol/L Chloride 102.0 (98-107) mmol/L Carbon Dioxide 19 L (22-30) mmol/L BUN 7 (7-17) mg/dL Creatinine 0.5 L (0.7-1.2) mg/dL Glucose 65 (65-100) mg/dL Calcium 8.1 L (8.4-10.2) mg/dL Calcium panel 07/06/19 Range/Units 05:48 Calcium 8.1 L (8.4-10.2) mg/dL Pituitary panel 07/06/19 Range/Units 05:48 Sodium 138 (137-145) mmol/L Potassium 4.2 (3.6-5.0) mmol/L Chloride 102.0 (98-107) mmol/L Carbon Dioxide 19 L (22-30) mmol/L BUN 7 (7-17) mg/dL Creatinine 0.5 L (0.7-1.2) mg/dL Glucose 65 (65-100) mg/dL Calcium 8.1 L (8.4-10.2) mg/dL Adrenal panel 07/06/19 Range/Units 05:48 Sodium 138 (137-145) mmol/L Potassium 4.2 (3.6-5.0) mmol/L Chloride 102.0 (98-107) mmol/L Carbon Dioxide 19 L (22-30) mmol/L BUN 7 (7-17) mg/dL Creatinine 0.5 L (0.7-1.2) mg/dL Glucose 65 (65-100) mg/dL Calcium 8.1 L (8.4-10.2) mg/dL
--- NOTE | 2019-07-06 19:12 | Progress Note ---
Assessment and Plan Assessment and plan: --History of fibroid uterus s/p uterine artery embolization 06/29/2019 --Possible postop ileus versus SBO; Continue NG tube decompression, nothing by mouth status Monitor electrolytes and adjust --Nausea vomiting; secondary to ileus versus SBO Mild improvement, nothing by mouth --DVT prophylaxis: Lovenox Monitor clinically and adjust the management as needed Consults and recommendations noted and appreciated History Interval history: Patient seen and examined this afternoon medical records reviewed Patient had flatus,no bowel movement Has NG tube in place, nothing by mouth status Vital signs reviewed Hospitalist Physical - Constitutional Vitals: Temp Pulse Resp BP Pulse Ox 98.0 F 78 18 138/76 99 07/06/19 16:59 07/06/19 16:59 07/06/19 16:59 07/06/19 16:59 07/06/19 16:59 General appearance: Present: no acute distress, well-nourished - EENT Eyes: Present: PERRL, EOM intact - Neck Neck: Present: supple, normal ROM - Respiratory Respiratory effort: normal Respiratory: bilateral: diminished, negative: rales, rhonchi, wheezing - Cardiovascular Rhythm: regular Heart Sounds: Present: S1 & S2 - Extremities Extremities: no ischemia, No edema - Abdominal General gastrointestinal: soft, distended (no guarding no rigidity) - Integumentary Integumentary: Present: clear, warm - Psychiatric Psychiatric: appropriate mood/affect, cooperative - Neurologic Neurologic: moves all extremities Results - Labs CBC & Chem 7: 07/06/19 05:48 07/06/19 05:48 Labs: Laboratory Last Values WBC 8.5 K/mm3 (4.5-11.0) 07/06/19 05:48 RBC 3.65 M/mm3 (3.65-5.03) 07/06/19 05:48 Hgb 11.2 gm/dl (10.1-14.3) 07/06/19 05:48 Hct 33.5 % (30.3-42.9) D 07/06/19 05:48 MCV 92 fl (79-97) 07/06/19 05:48 MCH 31 pg (28-32) 07/06/19 05:48 MCHC 33 % (30-34) 07/06/19 05:48 RDW 15.0 % (13.2-15.2) 07/06/19 05:48 Plt Count 270 K/mm3 (140-440) 07/06/19 05:48 Lymph % (Auto) 18.9 % (13.4-35.0) 07/06/19 05:48 [place] % (Auto) 7.0 % (0.0-7.3) 07/06/19 05:48 Eos % (Auto) 7.0 % (0.0-4.3) H 07/06/19 05:48 Baso % (Auto) 0.5 % (0.0-1.8) 07/06/19 05:48 Lymph # 1.6 K/mm3 (1.2-5.4) 07/06/19 05:48 [place] # 0.6 K/mm3 (0.0-0.8) 07/06/19 05:48 Eos # 0.6 K/mm3 (0.0-0.4) H 07/06/19 05:48 Baso # 0.0 K/mm3 (0.0-0.1) 07/06/19 05:48 Seg Neutrophils % 66.6 % (40.0-70.0) 07/06/19 05:48 Seg Neutrophils # 5.6 K/mm3 (1.8-7.7) 07/06/19 05:48 PT 13.4 Sec. (12.2-14.9) 07/04/19 23:29 INR 1.03 (0.87-1.13) 07/04/19 23:29 APTT 25.1 Sec. (24.2-36.6) 07/04/19 23:29 Sodium 138 mmol/L (137-145) 07/06/19 05:48 Potassium 4.2 mmol/L (3.6-5.0) 07/06/19 05:48 Chloride 102.0 mmol/L (98-107) 07/06/19 05:48 Carbon Dioxide 19 mmol/L (22-30) L 07/06/19 05:48 Anion Gap 21 mmol/L 07/06/19 05:48 BUN 7 mg/dL (7-17) 07/06/19 05:48 Creatinine 0.5 mg/dL (0.7-1.2) L 07/06/19 05:48 Estimated GFR > 60 ml/min 07/06/19 05:48 BUN/Creatinine Ratio 14 % 07/06/19 05:48 Glucose 65 mg/dL (65-100) 07/06/19 05:48 Calcium 8.1 mg/dL (8.4-10.2) L 07/06/19 05:48 Phosphorus 2.80 mg/dL (2.5-4.5) 07/05/19 10:23 Magnesium 2.10 mg/dL (1.7-2.3) 07/05/19 10:23 Total Bilirubin 0.40 mg/dL (0.1-1.2) 07/04/19 23:29 AST 18 units/L (5-40) 07/04/19 23:29 ALT 10 units/L (7-56) 07/04/19 23:29 Alkaline Phosphatase 76 units/L (35-129) 07/04/19 23:29 Total Protein 8.9 g/dL (6.3-8.2) H 07/04/19 23:29 Albumin 4.1 g/dL (3.9-5) 07/04/19 23:29 Albumin/Globulin Ratio 0.9 % 07/04/19 23:29 Lipase 33 units/L (13-60) 07/04/19 23:29 HCG, Qual Negative (Negative) 07/04/19 23:29 Urine Color [place]lesha (Yellow) 07/05/19 00:36 Urine Turbidity Clear (Clear) 07/05/19 00:36 Urine pH 5.0 (5.0-7.0) 07/05/19 00:36 Ur Specific [place] 1.034 (1.003-1.030) H 07/05/19 00:36 Urine Protein 30 mg/dl mg/dL (Negative) 07/05/19 00:36 Urine Glucose (UA) Neg mg/dL (Negative) 07/05/19 00:36 Urine Ketones 20 mg/dL (Negative) 07/05/19 00:36 Urine Blood Neg (Negative) 07/05/19 00:36 Urine Nitrite Neg (Negative) 07/05/19 00:36 Urine Bilirubin Neg (Negative) 07/05/19 00:36 Urine Urobilinogen < 2.0 mg/dL (<2.0) 07/05/19 00:36 Ur Leukocyte Esterase Neg (Negative) 07/05/19 00:36 Urine WBC (Auto) 3.0 /HPF (0.0-6.0) 07/05/19 00:36 Urine RBC (Auto) 21.0 /HPF (0.0-6.0) 07/05/19 00:36 Urine Bacteria (Auto) 1+ /HPF (Negative) 07/05/19 00:36 Urine Mucus 1+ /HPF 07/05/19 00:36 Active Medications - Current Medications Current Medications: Generic Name Dose Route Start Last Admin Trade Name Freq PRN Reason Stop Dose Admin Enoxaparin Sodium 40 mg 07/05/19 10:00 07/06/19 12:06 Enoxaparin SUB-Q 40 mg QDAY GABI Administration Sodium Chloride 1,000 mls @ 100 mls/hr 07/05/19 03:00 07/06/19 04:26 Nacl 0.45% 1000 Ml IV 100 mls/hr DIRECT GABI Administration Levofloxacin/Dextrose 500 mg in 100 mls @ 100 mls/hr 07/05/19 16:00 07/06/19 10:45 Levaquin 500mg/100ml IV 07/11/19 15:59 100 mls/hr Q24HR GABI Administration Protocol Ketorolac Tromethamine 30 mg 07/05/19 12:00 07/06/19 18:51 Toradol IV 07/10/19 11:59 30 mg Q6HR GABI Administration Morphine Sulfate 2 mg 07/05/19 02:57 07/06/19 04:28 Morphine IV 2 mg Q4H PRN Administration Pain, Moderate (4-6) Ondansetron HCl 4 mg 07/05/19 02:57 Zofran IV Q6H PRN Nausea And Vomiting Phenol 1 spray 07/05/19 09:00 07/06/19 04:28 Chloraseptic MM 1 spray PRN PRN Administration Sore Throat Senna 17.6 mg 07/06/19 13:00 07/06/19 12:31 Senokot PO 17.6 mg Q12HR GABI Administration Sodium Chloride 10 ml 07/05/19 10:00 07/06/19 12:18 Sodium Chloride Flush Syringe 10 Ml IV Not Given BID GABI Sodium Chloride 10 ml 07/05/19 02:57 Sodium Chloride Flush Syringe 10 Ml IV PRN PRN LINE FLUSH Sodium Chloride 1,000 ml 07/05/19 14:39 Nacl 0.9% IR PRN PRN LINE FLUSH
[2019-07-07] MEDS ORDERED: diphenhydrAMINE 50 MG/ML VIAL IV ONE (00:18)
[2019-07-07] MEDS: KETOROLAC 30 MG/1 ML INJ IV SCH ×5 (00:27→23:36)
--- NOTE | 2019-07-07 08:36 | Progress Note ---
Assessment and Plan Patient's ileus appears to be improving. We'll obtain an abdominal x-ray. Would consider advancing the patient's diet to clear liquids today. Subjective Date of service: 07/07/19 Principal diagnosis: ileus following uterine artery embolization Interval history: Patient improving today. NG tube with 700 of greenish fluid of last 24 hours. Per patient, she has been passing flatus, per nursing, the patient has small bowel movement last night. The patient is hungry. No significant complaints of abdominal pain. Objective - Constitutional Vitals: Vital Signs - 12hr 07/07/19 07/07/19 07/07/19 00:13 00:27 04:43 Temperature 97.8 F 98.0 F Pulse Rate 77 69 Respiratory 16 18 16 Rate Blood Pressure 143/87 138/65 O2 Sat by Pulse 98 93 Oximetry 07/07/19 07/07/19 06:33 07:53 Temperature 97.9 F Pulse Rate 73 Respiratory 18 18 Rate Blood Pressure 136/80 O2 Sat by Pulse 95 Oximetry General appearance: Present: no acute distress - EENT Eyes: PERRL ENT: hearing intact - Neck Neck: supple - Respiratory Respiratory effort: normal - Breasts Breasts: deferred Extremities: Full ROM - Gastrointestinal General gastrointestinal: Present: deferred Rectal Exam: deferred - Genitourinary Female genitourinary: deferred - Musculoskeletal Musculoskeletal: strength equal bilaterally - Neurologic Neurologic: no focal deficits - Psychiatric Psychiatric: appropriate mood/affect, cooperative - Labs CBC & Chem 7: 07/06/19 05:48 07/06/19 05:48 Medications & Allergies - Medications Allergies/Adverse Reactions: Allergies No Known Allergies Allergy (Unverified 10/07/17 11:09) Home Medications: Home Medications Medication Instructions Recorded Confirmed Last Taken Type No Known Home Medications [No 07/05/19 07/05/19 Unknown History Reported Home Medications] Active Medications: Generic Name Dose Route Start Last Admin Trade Name Freq PRN Reason Stop Dose Admin Enoxaparin Sodium 40 mg 07/05/19 10:00 07/06/19 12:06 Enoxaparin SUB-Q 40 mg QDAY GABI Administration Sodium Chloride 1,000 mls @ 100 mls/hr 07/05/19 03:00 07/06/19 20:38 Nacl 0.45% 1000 Ml IV 100 mls/hr DIRECT GABI Administration Levofloxacin/Dextrose 500 mg in 100 mls @ 100 mls/hr 07/05/19 16:00 07/06/19 10:45 Levaquin 500mg/100ml IV 07/11/19 15:59 100 mls/hr Q24HR GABI Administration Protocol Ketorolac Tromethamine 30 mg 07/05/19 12:00 07/07/19 06:03 Toradol IV 07/10/19 11:59 30 mg Q6HR GABI Administration Morphine Sulfate 2 mg 07/05/19 02:57 07/06/19 22:14 Morphine IV 2 mg Q4H PRN Administration Pain, Moderate (4-6) Ondansetron HCl 4 mg 07/05/19 02:57 Zofran IV Q6H PRN Nausea And Vomiting Phenol 1 spray 07/05/19 09:00 07/06/19 04:28 Chloraseptic MM 1 spray PRN PRN Administration Sore Throat Senna 17.6 mg 07/06/19 13:00 07/06/19 22:03 Senokot PO 17.6 mg Q12HR GABI Administration Sodium Chloride 10 ml 07/05/19 10:00 07/06/19 22:02 Sodium Chloride Flush Syringe 10 Ml IV 10 ml BID GABI Administration Sodium Chloride 10 ml 07/05/19 02:57 Sodium Chloride Flush Syringe 10 Ml IV PRN PRN LINE FLUSH Sodium Chloride 1,000 ml 07/05/19 14:39 Nacl 0.9% IR PRN PRN LINE FLUSH
[2019-07-07] MEDS: SODIUM CHLORIDE 0.45% 1000 ML 1,000 ML IV SCH ×2 (09:26→21:38)
[2019-07-07] MEDS: ENOXAPARIN 40 MG/0.4 ML INJ SUB-Q SCH (09:26)
--- NOTE | 2019-07-07 09:39 | XRay Report ---
ABDOMEN 1 VIEW(S) INDICATION / CLINICAL INFORMATION: 07/06/2019. COMPARISON: None available. FINDINGS: TUBES / LINES: Nasogastric tube is no longer seen and presumably removed. BOWEL GAS PATTERN: Borderline gas-filled loops of small bowel in the mid abdomen have resolved. There is decreased stool in the proximal colon. The bowel gas pattern is near normal on today's exam. FREE AIR / EXTRALUMINAL GAS: None seen. ADDITIONAL FINDINGS: No significant additional findings. IMPRESSION: Unremarkable abdomen. Decreased constipation.Resolved ileus or fecal impaction since yesterday's exam . Signer Name: Jonathan Bethea Jr, MD Signed: 07/07/2019 9:35 AM Workstation Name: [id number]
--- NOTE | 2019-07-07 10:55 | Progress Note ---
Assessment and Plan clinically resolving opioid ileus s/p UFE. stable, afebrile. will clamp NGT and start clear liquids. if she tolerates will d/c NGT later to day. continue toradol for pain, avoid opioids if possible. Subjective Date of service: 07/07/19 Patient Reports: Positive: no new complaints, flatus, bowel movement (no acute events overnight) Objective Vital Signs - 12hr 07/07/19 07/07/19 07/07/19 00:13 00:27 04:43 Temperature 97.8 F 98.0 F Pulse Rate 77 69 Respiratory 16 18 16 Rate Blood Pressure 143/87 138/65 O2 Sat by Pulse 98 93 Oximetry 07/07/19 07/07/19 06:33 07:53 Temperature 97.9 F Pulse Rate 73 Respiratory 18 18 Rate Blood Pressure 136/80 O2 Sat by Pulse 95 Oximetry - General physical appearance well developed, no distress, no pain - Respiratory normal expansion, normal respiratory effort - Abdomen other (less distended, not tender to palpation, NGT 700cc in 24 hours. abdominal x-ray today shows non-obstructive pattern.) - Labs 07/06/19 05:48 07/06/19 05:48
[2019-07-07] MEDS: SENNOSIDES ORAL LIQD 8.8 MG/5 ML ORAL LIQD PO SCH ×2 (11:53→21:30)
[2019-07-07] MEDS ORDERED: PHENOL 1.4% 177 ML BOTTLE MM PRN (12:00)
--- NOTE | 2019-07-07 15:14 | Progress Note ---
Assessment and Plan Assessment and plan: --Possible postop ileus versus SBO; Clamped NG tube start on clear liquids per surgery Monitor electrolytes and adjust --History of fibroid uterus s/p uterine artery embolization 06/29/2019 --Nausea vomiting; secondary to ileus versus SBO Mild improvement, nothing by mouth --DVT prophylaxis: Lovenox Monitor clinically and adjust the management as needed Consults and recommendations noted and appreciated History Interval history: Feels slightly better had flatus Denies nausea vomiting Surgery started on clear liquid diet Clamped NG tube Patient is ambulating in hallway Vital signs noted Hospitalist Physical - Constitutional Vitals: Temp Pulse Resp BP Pulse Ox 97.9 F 72 18 126/92 97 07/07/19 12:38 07/07/19 12:38 07/07/19 12:38 07/07/19 12:38 07/07/19 12:38 General appearance: Present: no acute distress, well-nourished - EENT Eyes: Present: PERRL, EOM intact - Neck Neck: Present: supple, normal ROM - Respiratory Respiratory effort: normal Respiratory: bilateral: diminished, negative: rales, rhonchi, wheezing - Cardiovascular Rhythm: regular Heart Sounds: Present: S1 & S2 - Extremities Extremities: no ischemia, No edema - Abdominal General gastrointestinal: soft, non-tender, non-distended, hypoactive bowel sounds - Integumentary Integumentary: Present: clear, warm - Psychiatric Psychiatric: appropriate mood/affect, cooperative - Neurologic Neurologic: CNII-XII intact, moves all extremities Results - Labs CBC & Chem 7: 07/06/19 05:48 07/06/19 05:48 Labs: Laboratory Last Values WBC 8.5 K/mm3 (4.5-11.0) 07/06/19 05:48 RBC 3.65 M/mm3 (3.65-5.03) 07/06/19 05:48 Hgb 11.2 gm/dl (10.1-14.3) 07/06/19 05:48 Hct 33.5 % (30.3-42.9) D 07/06/19 05:48 MCV 92 fl (79-97) 07/06/19 05:48 MCH 31 pg (28-32) 07/06/19 05:48 MCHC 33 % (30-34) 07/06/19 05:48 RDW 15.0 % (13.2-15.2) 07/06/19 05:48 Plt Count 270 K/mm3 (140-440) 07/06/19 05:48 Lymph % (Auto) 18.9 % (13.4-35.0) 07/06/19 05:48 [place] % (Auto) 7.0 % (0.0-7.3) 07/06/19 05:48 Eos % (Auto) 7.0 % (0.0-4.3) H 07/06/19 05:48 Baso % (Auto) 0.5 % (0.0-1.8) 07/06/19 05:48 Lymph # 1.6 K/mm3 (1.2-5.4) 07/06/19 05:48 [place] # 0.6 K/mm3 (0.0-0.8) 07/06/19 05:48 Eos # 0.6 K/mm3 (0.0-0.4) H 07/06/19 05:48 Baso # 0.0 K/mm3 (0.0-0.1) 07/06/19 05:48 Seg Neutrophils % 66.6 % (40.0-70.0) 07/06/19 05:48 Seg Neutrophils # 5.6 K/mm3 (1.8-7.7) 07/06/19 05:48 PT 13.4 Sec. (12.2-14.9) 07/04/19 23:29 INR 1.03 (0.87-1.13) 07/04/19 23:29 APTT 25.1 Sec. (24.2-36.6) 07/04/19 23:29 Sodium 138 mmol/L (137-145) 07/06/19 05:48 Potassium 4.2 mmol/L (3.6-5.0) 07/06/19 05:48 Chloride 102.0 mmol/L (98-107) 07/06/19 05:48 Carbon Dioxide 19 mmol/L (22-30) L 07/06/19 05:48 Anion Gap 21 mmol/L 07/06/19 05:48 BUN 7 mg/dL (7-17) 07/06/19 05:48 Creatinine 0.5 mg/dL (0.7-1.2) L 07/06/19 05:48 Estimated GFR > 60 ml/min 07/06/19 05:48 BUN/Creatinine Ratio 14 % 07/06/19 05:48 Glucose 65 mg/dL (65-100) 07/06/19 05:48 Calcium 8.1 mg/dL (8.4-10.2) L 07/06/19 05:48 Phosphorus 2.80 mg/dL (2.5-4.5) 07/05/19 10:23 Magnesium 2.10 mg/dL (1.7-2.3) 07/05/19 10:23 Total Bilirubin 0.40 mg/dL (0.1-1.2) 07/04/19 23:29 AST 18 units/L (5-40) 07/04/19 23:29 ALT 10 units/L (7-56) 07/04/19 23:29 Alkaline Phosphatase 76 units/L (35-129) 07/04/19 23:29 Total Protein 8.9 g/dL (6.3-8.2) H 07/04/19 23:29 Albumin 4.1 g/dL (3.9-5) 07/04/19 23:29 Albumin/Globulin Ratio 0.9 % 07/04/19 23:29 Lipase 33 units/L (13-60) 07/04/19 23:29 HCG, Qual Negative (Negative) 07/04/19 23:29 Urine Color [place] (Yellow) 07/05/19 00:36 Urine Turbidity Clear (Clear) 07/05/19 00:36 Urine pH 5.0 (5.0-7.0) 07/05/19 00:36 Ur Specific [place] 1.034 (1.003-1.030) H 07/05/19 00:36 Urine Protein 30 mg/dl mg/dL (Negative) 07/05/19 00:36 Urine Glucose (UA) Neg mg/dL (Negative) 07/05/19 00:36 Urine Ketones 20 mg/dL (Negative) 07/05/19 00:36 Urine Blood Neg (Negative) 07/05/19 00:36 Urine Nitrite Neg (Negative) 07/05/19 00:36 Urine Bilirubin Neg (Negative) 07/05/19 00:36 Urine Urobilinogen < 2.0 mg/dL (<2.0) 07/05/19 00:36 Ur Leukocyte Esterase Neg (Negative) 07/05/19 00:36 Urine WBC (Auto) 3.0 /HPF (0.0-6.0) 07/05/19 00:36 Urine RBC (Auto) 21.0 /HPF (0.0-6.0) 07/05/19 00:36 Urine Bacteria (Auto) 1+ /HPF (Negative) 07/05/19 00:36 Urine Mucus 1+ /HPF 07/05/19 00:36 Active Medications - Current Medications Current Medications: Generic Name Dose Route Start Last Admin Trade Name Freq PRN Reason Stop Dose Admin Enoxaparin Sodium 40 mg 07/05/19 10:00 07/07/19 09:26 Enoxaparin SUB-Q 40 mg QDAY GABI Administration Sodium Chloride 1,000 mls @ 100 mls/hr 07/05/19 03:00 07/07/19 09:26 Nacl 0.45% 1000 Ml IV 100 mls/hr DIRECT GABI Administration Levofloxacin/Dextrose 500 mg in 100 mls @ 100 mls/hr 07/05/19 16:00 07/07/19 09:26 Levaquin 500mg/100ml IV 07/11/19 15:59 100 mls/hr Q24HR GABI Administration Protocol Ketorolac Tromethamine 30 mg 07/05/19 12:00 07/07/19 11:55 Toradol IV 07/10/19 11:59 30 mg Q6HR GABI Administration Morphine Sulfate 2 mg 07/05/19 02:57 07/06/19 22:14 Morphine IV 2 mg Q4H PRN Administration Pain, Moderate (4-6) Ondansetron HCl 4 mg 07/05/19 02:57 Zofran IV Q6H PRN Nausea And Vomiting Phenol 1 spray 07/07/19 12:00 Chloraseptic MM Q1H PRN Sore Throat Senna 17.6 mg 07/06/19 13:00 07/07/19 11:53 Senokot PO 17.6 mg Q12HR GABI Administration Sodium Chloride 10 ml 07/05/19 10:00 07/07/19 09:27 Sodium Chloride Flush Syringe 10 Ml IV 10 ml BID GABI Administration Sodium Chloride 10 ml 07/05/19 02:57 Sodium Chloride Flush Syringe 10 Ml IV PRN PRN LINE FLUSH Sodium Chloride 1,000 ml 07/05/19 14:39 Nacl 0.9% IR PRN PRN LINE FLUSH
[2019-07-07] MEDS: MORPHINE 2 MG/1 ML INJ IV PRN (20:43)
[2019-07-08] MEDS: KETOROLAC 30 MG/1 ML INJ IV SCH (05:37)
[2019-07-08 08:35] VITALS: BP 129/75
[2019-07-08] MEDS: SENNOSIDES ORAL LIQD 8.8 MG/5 ML ORAL LIQD PO SCH (10:15)
[2019-07-08] MEDS: ENOXAPARIN 40 MG/0.4 ML INJ SUB-Q SCH (10:15)
--- NOTE | 2019-07-08 11:26 | Progress Note ---
Assessment and Plan s/p UFE with post op opioid induced ilieus that has clinically resolved. she is showing signs of return of bowel function. OK to discharge to home and advance diet as tolerated. Subjective Date of service: 07/08/19 Patient Reports: Positive: no new complaints, feels better, tolerating liquids well (tolerated PO last night, even after NGT was removed. Pt says she is ready to go home.), flatus, bowel movement Objective Vital Signs - 12hr 07/08/19 07/08/19 07/08/19 00:16 04:45 07:47 Temperature 98.8 F 98.7 F 98.5 F Pulse Rate 67 67 68 Respiratory 18 18 18 Rate Blood Pressure 125/76 134/74 129/75 O2 Sat by Pulse 95 95 95 Oximetry - General physical appearance well developed, well nourished, no distress - Respiratory normal expansion, normal respiratory effort - Abdomen soft, not tender, not distended - Labs 07/06/19 05:48 07/06/19 05:48
--- NOTE | 2019-07-08 11:49 | Discharge Summary ---
Providers - Providers Date of Admission: 07/05/19 02:57 Date of discharge: 07/08/19 Attending physician: ANGELITO RICE 07/05/19 02:03 Consult to Physician [CONS] Urgent Comment: Dr. Peck spoke with Dr. Drake @ 0201 Consulting Provider: DANIEL DRAKE Physician Instructions: [place]am[place] [facility] [place] physician: [facility], Hospitalization Reason for admission: abdominal pain and distention/ileus versus SBO Condition: Stable Pertinent studies: CT abdomen and pelvis Multiple X-rays of abdomen Hospital course: 43 year old female patient 6 days s/p uterine artery embolization for fibroids. the procedure was uneventful, but she was was having significant pain and was medicating consistently with her prescribed post procedure medications. She had worsening abdominal pain with 3 day history of nausea and vomiting. No appetite, and reports no bowel movement or flatus in 6 days. She was brought in through the ED and a CT scan showed a early small bowel obstruction vs ileus. Reports a chronic history of constipation. Patient was placed nothing by mouth with NG tube to intermittent suction, evaluated by surgery As well as interventional radiologist, managed symptomatically with IV fluids, intermittent NG suction and supportive care Increased ambulation, patient's small bowel obstruction versus ileus gradually but significantly improved Started on clear liquids advanced to full liquids today. Patient's NG tube was removed feels better no nausea vomiting had flatus And soft bowel movement, Patient's diet is advanced cleared by surgery for discharge and follow-up per schedule Patient is hemodynamically and clinically stable at discharge Discharge diagnosis; --Possible postop ileus versus SBO; resolved --History of fibroid uterus s/p uterine artery embolization 06/29/2019 --Nausea vomiting; secondary to ileus versus SBO, Resolved --DVT prophylaxis: Lovenox Stable at discharge Disposition: DC-01 TO HOME OR SELFCARE Time spent for discharge: 32 min Core Measure Documentation - Palliative Care Palliative Care/ Comfort Measures: Not Applicable - Core Measures Any of the following diagnoses?: none Exam - Constitutional Vitals: Temp Pulse Resp BP Pulse Ox 98.5 F 68 18 129/75 95 07/08/19 07:47 07/08/19 07:47 07/08/19 07:47 07/08/19 07:47 07/08/19 07:47 General appearance: Present: no acute distress, well-nourished - EENT Eyes: Present: PERRL, EOM intact - Neck Neck: Present: supple, normal ROM - Respiratory Respiratory effort: normal Respiratory: negative: rales, rhonchi, wheezing - Cardiovascular Rhythm: regular Heart Sounds: Present: S1 & S2 - Extremities Extremities: no ischemia, No edema - Abdominal General gastrointestinal: Present: soft, non-tender, non-distended, normal bowel sounds - Integumentary Integumentary: Present: clear, warm - Musculoskeletal Musculoskeletal: strength equal bilaterally - Psychiatric Psychiatric: appropriate mood/affect, cooperative - Neurologic Neurologic: CNII-XII intact, moves all extremities Plan Activity: advance as tolerated Diet: advance as tolerated Additional Instructions: If you have abdominal distention, pain or nausea vomiting contact M.D. or go to emergency room. Advance diet as tolerated [facility] [Primary Care Provider] - 3-5 Days DANIEL DRAKE MD [Staff Physician] - 7 Days DANIEL GONZALEZ MD [Staff Physician] - 7 Days
== END 2019-07-08 11:55 | disposition home or self-care (01) | DRG 390 ==
LOC: ED 22:57 → 3B-SURG 07-05 02:57
PROVIDERS: ADMIT Internal Medicine; ATTEND Internal Medicine
PROC: 0D9670Z Drainage of Stomach with Drainage Device, Via Natural or Artificial Opening (ICD-10-PCS; principal; 2019-07-05)
DX: K91.30 Postprocedural intestinal obstruction, unspecified as to partial versus complete (principal); D25.9 Leiomyoma of uterus, unspecified; K59.09 Other constipation; Y83.8 Other surgical procedures as the cause of abnormal reaction of the patient, or of later complication, without mention of misadventure at the time of the procedure; Y92.098 Other place in other non-institutional residence as the place of occurrence of the external cause
CPT/HCPCS: 36415; 74018; 74177; 80048; 80053; 81001; 83690; 83735; 84100; 84703; 85025; 85610; 85730; 87086; 96374; G0378; J1200; J1650; J1885; J1956; J2270; J2405; J7030; Q9967

== ENCOUNTER 2019-07-19 06:01 | Day surgery (SDC) | payer BC ==
--- NOTE | 2019-07-18 13:38 | History and Physical Report ---
History of Present Illness Date of examination: 07/14/19 History of present illness: Patient has been reassessed/reevaluated. H&P has been reviewed. No interval changes. This is a 43 years old female who presents with uterine fibroids. s/p Uterine fibroid embolization (06/29/2019) by Dr Danielle for large intramural leiomyomas presents for hysteroscopic myomectomy. She complains of abdominal pain, abdominal pressure, pelvic pain, pelvic pressure, menorrhagia and intermenstrual bleeding. Associated symptoms include urinary frequency and constipation. Treatment tried to date includes uterine artery embolization. Prior to today's visit the patient has had MRI of pelvis, US of pelvis and CT of pelvis. Vital Signs: Patient Profile: 43 Years Old Female LMP: 05/14/2019 Height: 68 inches (172.72 cm) BMI: 22.96 BP sittin / 60 (left arm) Menstrual History: LMP (date): 05/14/2019 Date of Last Pap Smear: 04/13/2019 Past History : 0 Term Births: 0 Premature Births: 0 Living Children: 0 Para: 0 Mult. Births: 0 Prev : 0 Prev. attempt? 0 Aborta: 0 Elect. Ab: 0 Spont. Ab: 0 Ectopics: 0 CERTIFIED SCRUB TECH History Operations: Uterine fibroid embolization (06/29/2019) Abnormal PAP: negative Uterine Anomaly: positive fibroids Infection History HIV Risk Eval: no Personal hx. of genital herpes: no Hx of STD: None Current Allergies:Ac No known allergies Past Medical History: Fibroids Past Surgical History: Uterine fibroid embolization (06/29/2019) Family History Summary: Other family member - Has Family History of Diabetes - Entered On: 09/23/2017 Other family member - Has No Family History of Breast Cancer - Entered On: 09/23/2017 Other family member - Has No Family History of Colon Cancer - Entered On: 09/23/2017 Other family member - Has No Family History of Ovarvian Cancer - Entered On: 09/23/2017 Social History: Patient is Unemployed Smoking History: Patient has never smoked. Risk Factors: Smoked Tobacco Use: Never smoker Smokeless Tobacco Use: Never Passive smoke exposure: no Drug use: no HIV high-risk behavior: no Caffeine use: 0 drinks per day Alcohol use: no Exercise: no Seatbelt use: 100 % PAP Smear History: Date of Last PAP Smear: 04/13/2019 Review of Systems General Denies fever, chills, sweats, anorexia, fatigue, weakness, malaise, weight loss and sleep disorder. Complains of pelvic pain and painful periods. Denies vaginal discharge, incontinence, dysuria, hematuria, urinary frequency, amenorrhea, menorrhagia, abnormal vaginal bleeding, genital sores, decreased libido, painful sex, urinary urgency, hot flashes, vaginal dryness, vaginal itching and vaginal odor. CV Denies chest pains, palpitations, syncope, dyspnea on exertion, orthopnea, PND and peripheral edema. Resp Denies cough, dyspnea at rest, excessive sputum, hemoptysis, wheezing and pleurisy. GI Denies nausea, vomiting, diarrhea, constipation, change in bowel habits, abdominal pain, melena, hematochezia, jaundice, gas/bloating, indigestion/heartburn, dysphagia and odynophagia. Breast Denies left breast lump, right breast lump, nipple discharge, bloody discharge from nipple, breast pain, abnormal mammogram and breast enlargement. Psych Denies depression, anxiety, irritability and mood swings. Past History Past Medical History: GERD, other (SEE HPI) Past Surgical History: Other (SEE HPI) Social history: , full code (SEE HPI) Family history: other (SEE HPI) Medications and Allergies Allergies Allergy/AdvReac Type Severity Reaction Status Date / Time No Known Allergies Allergy Verified 07/17/19 13:03 Home Medications Medication Instructions Recorded Confirmed Last Taken Type No Known Home Medications [No 07/05/19 07/17/19 Unknown History Reported Home Medications] Review of Systems Constitutional: other (SEE HPI) Exam - Physical Exam Narrative exam: HEENT: normocephalic, no lesions or deformities Skin no significant abnormal lesions or rashes Chest: respiratory effort normal, clear to auscultation CV: regular, normal S1-S2, no murmur, no rub, no gallop Abdomen: normal bowel sounds, soft, nontender, no HSM Neuro: no gross anomalities Extremities: no clubbing, cyanosis, or edema CERTIFIED SCRUB TECH Exams Vulva/Vagina: normal appearance, white discharge, lesions. No evidence of cystocele or rectocele. Cervix: No lesions; no cervical motion tenderness Uterus: enlarged palpated at umbilicus Adnexae: Unable to palpate due to uterine size Rectovaginal: exam defered Assessment and Plan - Patient Problems (1) Intramural and submucous leiomyoma of uterus Current Visit: No Status: Acute Plan to address problem: Diagnosis explained to patient . Questions answered. Indications for and description of the procedure given. Questions answered. Patient agrees to proceed. Patient desires to retain future fertility. She desires myomectomy Patient desires hysteroscopic myomectomy ndications for and description of the hysteroscopy given. .Discussed risk of surgery including infection, bleeding and risk of perforating her uterus. Questions answered. Patient understands and desires to proceed (2) Pelvic and perineal pain Current Visit: No Status: Acute Plan to address problem: Probably secondary to myomas (3) Chronic GERD Current Visit: No Status: Chronic
[2019-07-19] MEDS ORDERED: MIDAZOLAM 2 MG/2 ML INJ IV ONE (06:15)
[2019-07-19] MEDS ORDERED: LACTATED RINGERS 1,000 ML IV SCH (06:16)
[2019-07-19] MEDS ORDERED: BACTERIOSTATIC SODIUM CHLORIDE 0.9% 30 ML VIAL INFILTRATI ONE (06:22)
[2019-07-19] MEDS ORDERED: ONDANSETRON 4 MG/2 ML INJ IV PRN (07:06)
[2019-07-19] MEDS ORDERED: fentaNYL 100 MCG/2 ML INJ IV PRN (07:06)
--- NOTE | 2019-07-19 07:07 | Anesthesia Day of Surgery ---
Anesthesia Day of Surgery - Day of Surgery Patient Examined: Yes Patient H&P Reviewed: Yes Patient is NPO: Yes
--- NOTE | 2019-07-19 07:11 | Anesthesia Consultation ---
Anesthesia Consult and Med Hx Date of service: 07/19/19 - Airway Anesthetic Teeth Evaluation: Good ROM Head & Neck: Adequate Mental/Hyoid Distance: Adequate Mallampati Class: Class II Intubation Access Assessment: Good - Pre-Operative Health Status ASA Pre-Surgery Classification: ASA2 Proposed Anesthetic Plan: General - Pulmonary Hx Asthma: Yes (Last treated 2 years ago) - Central Nervous System Hx Psychiatric Problems: No - Other Systems Hx Alcohol Use: Yes (Occas) Hx Cancer: No
[2019-07-19] MEDS ORDERED: fentaNYL 100 MCG/2 ML INJ ONE (07:26)
[2019-07-19] MEDS ORDERED: PROPOFOL 200 MG/20 ML VIAL IV ONE (07:27)
[2019-07-19] MEDS ORDERED: LIDOCAINE MPF (2%) 20 MG/1 ML VIAL 5 ML ONE (07:30)
[2019-07-19 07:48] LABS: Hemoglobin 14.1 gm/dl (10.1-14.3)
[2019-07-19] MEDS ORDERED: ONDANSETRON 4 MG/2 ML INJ ONE (08:00)
[2019-07-19] MEDS ORDERED: dexAMETHasone 20 MG/5 ML VIAL ONE (08:00)
[2019-07-19] MEDS ORDERED: SODIUM CHLORIDE 0.9% IRRIG SOLN 3000 ML IR ONE (08:02)
[2019-07-19] MEDS ORDERED: MEPERIDINE 25 MG/1 ML INJ ONE (08:41)
--- NOTE | 2019-07-19 08:43 | Operative Report ---
Operative Report Operative Report: Date of procedure: 07/19/2019 Pre-operative diagnosis: Leiomyomata status post uterine fibroid embolization Post-operative diagnosis: Same Procedure name(s): Operative hysteroscopy with MyoSure Surgeon: Sky Higgins MD Paedodontist: [] Anesthesia: Gen. EBL: Minimal Complications: None Findings: On bimanual exam patient had a uterus palpating at her umbilicus. Patient with small mass posterior uterine wall consistent with a probable submucosal myoma. Uterine cavity was distorted from extrinsic masses from her large leiomyomata. Both the right and left fallopian tube ostia were seen Specimen(s): Uterine mass Procedure: Patient was brought into the operating room, where general anesthesia was induced without any difficulty. Patient was placed in dorsal lithotomy position. Prep and drape in the usual sterile manner. Timeout procedure was performed. The patient's bladder was emptied with a red rubber catheter. Speculum was placed in the vagina. Tenaculum was placed at 12:00 on the cervix. The cervical os was dilated to a 19 Romansh diameter. The hysteroscope was placed and the findings noted above. The MyoSure device was primed. The device was placed through the cervical os. The mass was then removed using the MyoSure. The mass was completely removed with no evidence of puncture on the uterine wall. All instruments were then removed. The patient was awakened in the operating room and accompanied to recovery room in good condition.
[2019-07-19] MEDS ORDERED: MEPERIDINE 25 MG/1 ML INJ IV PRN (08:56)
--- NOTE | 2019-07-19 09:06 | Short Stay Summary ---
Short Stay Documentation Date of service: 07/19/19 - History Past Medical History: GERD, other (SEE HPI) Past Surgical History: Other (SEE HPI) Social history: , full code (SEE HPI) - Allergies and Medications Current Medications: Allergies No Known Allergies Allergy (Verified 07/17/19 13:03) Home Medications Medication Instructions Recorded Confirmed Last Taken Type DOXYCYCLINE Hyclate [Vibramycin 100 mg PO Q12HR #14 capsule 07/19/19 Unknown Rx CAP] Naproxen Sodium [Naproxen Sodium 550 mg PO BID PRN #45 tablet 07/19/19 Unknown Rx 550mg] Active Medications Fentanyl (Sublimaze) 50 mcg IV Q5MIN PRN PRN Reason: Pain , Severe (7-10) Stop: 07/19/19 22:00 Lactated Ringer's (Lactated Ringers) 1,000 mls @ 100 mls/hr IV DIRECT GABI Last Admin: 07/19/19 06:50 Dose: 100 mls/hr Documented by: Meperidine HCl (Demerol) 25 mg IV ONCE PRN PRN Reason: Shivering Stop: 07/19/19 11:00 Ondansetron HCl (Zofran) 4 mg IV ONCE PRN PRN Reason: Nausea And Vomiting Stop: 07/19/19 16:00 - Physical exam General appearance: no acute distress HEENT: Atraumatic Lungs: Normal air movement Heart: Regular rate Female Genitourinary: normal Rectal Exam: deferred Extremities: no ischemia - Brief post op/procedure progress note Date of procedure: 07/19/19 (See dictated note) - Hospital course Hospital course: Patient underwent operative hysteroscopy w/o complications - Disposition Condition at discharge: Good Disposition: DC-01 TO HOME OR SELFCARE - Discharge Diagnoses (1) Intramural and submucous leiomyoma of uterus Status: Acute (2) Pelvic and perineal pain Status: Acute (3) Chronic GERD Status: Chronic Short Stay Discharge Plan Activity: advance as tolerated Diet: regular Additional Instructions: call the office for fever, chills, nausea, vomiting or pain not controlled by pain medication. Keep scheduled post-operative office appointment. Follow up with: FREDERICK STEPHENS MD [Primary Care Provider] - 7 Days Prescriptions: Naproxen Sodium [Naproxen Sodium 550mg] 550 mg PO BID PRN #45 tablet PRN Reason: Pain, Moderate (4-6) DOXYCYCLINE Hyclate [Vibramycin CAP] 100 mg PO Q12HR #14 capsule
[2019-07-19 11:23] VITALS: BP 125/79
[2019-07-19] MEDS ORDERED: oxyCODONE /ACETAMINOPHEN 5-325MG TAB PO ONE (11:56)
[2019-07-19] MEDS ORDERED: oxyCODONE /ACETAMINOPHEN 5-325MG TAB ONE (11:59)
--- NOTE | 2019-07-19 14:36 | Post Anesthesia Evaluation ---
- Post Anesthesia Evaluation Patient Participated: Yes Airway Patent: Yes Stable Respiratory Function: Yes Nausea/Vomiting: No Temp > 96.8F: Yes Pain Manageable: Yes Adequeate Hydration: Yes Anesthesia Complications: No Block Receding Appropriately: Not Applicable Patient on Ventilator: No
== END 2019-07-19 06:02 | disposition home or self-care (01) ==
LOC: OR 06:01
PROVIDERS: ATTEND Obstetrics & Gynecology
DX: N85.8 Other specified noninflammatory disorders of uterus (principal); K21.9 Gastro-esophageal reflux disease without esophagitis; J45.909 Unspecified asthma, uncomplicated; Z72.89 Other problems related to lifestyle; Z98.890 Other specified postprocedural states; Z79.899 Other long term (current) drug therapy
CPT/HCPCS: 36415; 58558; 81025; 85014; 85018; 88305; A4217; C1782; J1100; J2175; J2250; J2405; J2704; J3010; J7120